=== PATIENT | female | born 1990 | race Caucasian/White ===

== ENCOUNTER 2022-06-30 05:41 | Inpatient (IN) ==
--- NOTE | 2022-06-26 15:55 | Anesthesiology Consultation ---
Date of Service June 26, 2022 Assessment & Plan (1) Encounter for pre-operative examination: Chart Review Chart Review: entry level staff accountant initiated -COVID screening: Per PAT nursing assessment on 06/26/22. No known COVID-19 p ositive contacts or current COVID-19 related symptoms. Travel screen negative. Patient is NOT vaccinated for Covid. At surgeon discretion if preop Covid testing being done. D&E 06/22/19= Done under GA with Grade 2 view with MAC #3.0. ETT #7.0. Atraumatic, all teeth ok. Hypopharynx History Surgery Operation Date: 06/30/22 07:30 Proposed Procedures p Primary Section - Gabriel Solano MD Height/Weight Height: 5 ft 2 in Weight: 133.356 kg Allergies Allergy/AdvReac Type Severity Reaction Status Date / Time No Known Allergies Allergy Verified 06/26/22 14:44 Medications Home Medications Medication Instructions Recorded Confirmed Last Taken vit no.95-ferrous 1 tab PO QAM 05/28/19 06/26/22 06/21/19 06:00 fumarate 28 mg-folic acid 800 mcg tablet () Past Medical History Medical History Allergic rhinitis Anxiety and depression Morbid obesity Seasonal allergies SOB (shortness of breath) on exertion "out of shape" Past Family History Family History Father Family history of diabetes mellitus Grandfather (Maternal) Family history of diabetes mellitus Past Surgical History Surgical History History of appendectomy History of tonsillectomy Hx of dilation and curettage Social History Smoking Status: Former smoker tobacco type: cigarettes Smoking cigarettes per day: CUTTING BACK 4-5 CIGS A DAY-X SEVERAL YRS Smoking End Date: quit > 1 yr ago Hx Alcohol Use: No Alcohol type: hard liquor alcohol intake frequency: holidays/special occasions only Hx Substance Use: No substance use type: does not use
[~2022-06-30 05:41] MED LIST: LACTATED RINGER'S 1,000 ML IV SCH
[2022-06-30] MEDS ORDERED: CITRIC ACID/SODIUM CITRATE 15 ML UDC PO SCH (06:00)
[2022-06-30 06:09] LABS: Hematocrit (blood only) 36.4 % (37.0-47.0); Hemoglobin 11.8 g/dl (12.0-16.0); Mean Corpuscular Hemoglobin 25.5 pg (25.0-34.0); Mean Corpuscular Hgb Conc 32.4 g/dL (32.0-36.0); Mean Corpuscular Volume 78.6 fL (80.0-100.0); Mean Platelet Volume 11.3 fL (9.4-12.4); Platelet Count 436 K/uL (130-400); RDW Coefficient of Variation 16.6 % (11.5-14.5); RDW Standard Deviation 46.1 fL (36.4-46.3); Red Blood Count 4.63 M/uL (4.20-5.40)
[2022-06-30 06:31] LABS: Basophils # (auto) 0.05 K/uL (0-0.2); Basophils % (auto) 0.4 %; Eosinophils # (auto) 0.14 K/uL (0-0.50); Eosinophils % (auto) 1.2 %; Immature Granulocytes # (auto) 0.05 K/uL (0.01-0.20); Immature Granulocytes % (auto) 0.4 %; Lymphocytes # (auto) 4.06 K/uL (1.2-3.4); Lymphocytes % (auto) 35.3 %; Monocytes # (auto) 0.69 K/uL (0.11-0.59); Neutrophils # (auto) 6.51 K/uL (1.40-6.50); Neutrophils % (auto) 56.7 %
[2022-06-30] MEDS ORDERED: MoRPHine SULFATE PF 1 MG/ML 10 ML AMP/VIAL ONE (07:28)
--- NOTE | 2022-06-30 07:39 | Anesthesiology Consultation ---
Date of Service June 30, 2022 Assessment & Plan Chart Review Chart Review: Acceptable Risk for Surgery Consults Requested none History Surgery Operation Date: 06/30/22 07:30 Proposed Procedures p Primary Section - Gabriel Solano MD Height/Weight Height: 5 ft 2 in Weight: 136.078 kg Allergies Allergy/AdvReac Type Severity Reaction Status Date / Time onion Allergy Hives Verified 06/30/22 06:31 Medications Home Medications Medication Instructions Recorded Confirmed Last Taken vit no.95-ferrous 1 tab PO QAM 05/28/19 06/26/22 06/21/19 06:00 fumarate 28 mg-folic acid 800 mcg tablet () NPO Date Last Intake of Fluids: 06/29/22 Time Last Intake of Fluids: 20:00 Date Last Intake of Solids: 06/29/22 Time Last Intake of Solids: 20:00 Past Medical History Medical History Allergic rhinitis Anxiety and depression Morbid obesity Seasonal allergies SOB (shortness of breath) on exertion "out of shape" Past Family History Family History Father Family history of diabetes mellitus Grandfather (Maternal) Family history of diabetes mellitus Past Surgical History Surgical History History of appendectomy History of tonsillectomy Hx of dilation and curettage Social History Smoking Status: Former smoker tobacco type: cigarettes Smoking cigarettes per day: CUTTING BACK 4-5 CIGS A DAY-X SEVERAL YRS Do You Dip or Chew Tobacco: No Smoking End Date: quit > 1 yr ago Hx Alcohol Use: No Alcohol type: hard liquor alcohol intake frequency: holidays/special occasions only Hx Substance Use: No substance use type: does not use Physical Exam Vital Signs Last Vital Signs Temp 36.7 C 06/30/22 07:05 Pulse 73 06/30/22 07:05 Resp 20 06/30/22 07:05 BP 133/71 06/30/22 07:05 Testing Laboratory Results 06/30/22 05:54 Blood Type A Positive 06/30/22 05:54 Antibody Screen NEGATIVE 06/30/22 05:54
[2022-06-30] MEDS ORDERED: ePHEDrine sulfate 50 MG/ML AMP IV PRN (07:40)
[2022-06-30] MEDS ORDERED: MoRPHine SULFATE PF 1 MG/ML 10 ML AMP/VIAL INT SPINAL ONE (07:40)
[2022-06-30] MEDS ORDERED: HYDROmorphone INJ 0.5 MG/0.5 ML SYR IV PRN (07:40)
[2022-06-30] MEDS ORDERED: NALOXONE HCL 1 MG in SODIUM CHLORIDE 0.9% 1000ML 1,000 ML IV PRN (07:40)
[2022-06-30] MEDS ORDERED: ONDANSETRON INJ 2 MG/ML 2 ML VIAL IV PRN (07:40)
[2022-06-30] MEDS ORDERED: MEPERIDINE HCL 25 MG/ML CARP/VIAL IV PRN (07:40)
[2022-06-30] MEDS ORDERED: diphenhydrAMINE 50 MG/ML VIAL IV PRN (07:40)
[2022-06-30] MEDS ORDERED: NALOXONE HCL 0.4 MG/1 ML VIAL/CARP IV PRN (07:40)
[2022-06-30] MEDS ORDERED: LACTATED RINGER'S 500 ML IV PRN (07:40)
[2022-06-30] MEDS ORDERED: NALOXONE HCL 0.08 MG in SYRINGE 1.8 ML IV PRN (07:40)
[2022-06-30] MEDS ORDERED: NALBUPHINE HCL INJ 10 MG/ML AMP IV PRN (07:40)
[2022-06-30] MEDS ORDERED: MoRPHine SULFATE 2 MG/ML CARP IV PRN (07:40)
[2022-06-30] MEDS ORDERED: NO NARCOTICS OR SEDATIVES SCH (07:45)
[2022-06-30] MEDS ORDERED: SODIUM CHLORIDE 0.9% 1000ML 1,000 ML IV SCH (07:45)
--- NOTE | 2022-06-30 07:46 | History & Physical Report ---
Date of Service June 30, 2022 Assessment & Plan (1) Breech presentation: Plan: section planned (2) Morbid obesity: Admission and Anticipated Discharge Date Admission Date: June 30, 2022 History of Present Illness Chief Complaint: breech presentation Primary Care Provider: Livier Dueñas MD 32 F [id number] at term presents for elective primary for breech. Ultrasound done this AM confirms breech. Allergies Allergy/AdvReac Type Severity Reaction Status Date / Time onion Allergy Hives Verified 06/30/22 06:31 Home Medications Medication Instructions Recorded Confirmed Type vit no.95-ferrous 1 tab PO QAM 05/28/19 06/26/22 History fumarate 28 mg-folic acid 800 mcg tablet () Patient History Medical History (Updated 06/30/22 @ 07:49 by Gabriel Solano MD) Allergic rhinitis Anxiety and depression Morbid obesity Seasonal allergies SOB (shortness of breath) on exertion "out of shape" Surgical History History of appendectomy History of tonsillectomy Hx of dilation and curettage Family History (Updated 06/30/22 @ 07:49 by Gabriel Solano MD) Father Family history of diabetes mellitus Grandfather (Maternal) Family history of diabetes mellitus Other Morbid obesity Social History Smoking Status: Former smoker Cigarettes Per Day: CUTTING BACK 4-5 CIGS A DAY-X SEVERAL YRS; Smoking End Date: quit > 1 yr ago; Second Hand Exposure: No; Do You Dip or Chew Tobacco: No; Tobacco Cessation Education Requested by Patient: No Hx Alcohol Use: No Hx Substance Use: No Preferred Language: Turkmen Communication Ability: Effective Slide Attendant Required: No Beliefs That Will Affect Care: None marital status: Single Current Living Situation: Family and Significant Other Current Living Situation Comment: FOB and son Other Information That Helps Us Care for You: No Feels Safe at Home: Yes Safety Concerns: Feels Safe At This Time Assistive Devices: Glasses 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 Physical Exam Constitutional: WD/WN, vitals as above Eyes: PERRL, conjunctivae normal, anicteric sclerae Respiratory: normal respiratory effort, lungs clear to auscultation Cardiovascular: Rate/Rhythm: regular rate and regular rhythm Musculoskeletal: Extremities: extremities normal to inspection Skin: no rashes, warm and dry Neurologic: patellar DTR's 2+ bilat, sensation intact Psychiatric: A+Ox3, euthymic affect Genitourinary: OB Exam Monitor Tracing: + external FHT monitor used, + external uterine monitor used, + category I and + normal FHT variability Results & Data ([facility]) Vital Signs (Past 12 Hours) Vital Signs Temp Pulse Resp BP 06/30/22 07:05 36.7 C 73 20 133/71 06/30/22 05:52 78 121/64 06/30/22 06:07 36.7 C 18 Code Status & VTE Plan VTE Prophylaxis Plan VTE Prophylaxis will be ordered: No Reason for no VTE drug order: Treatment not indicated Monitoring External Monitor Cat 1
[2022-06-30] MEDS ORDERED: PHENYLEPHRINE 100MCG/ML 5ML SYR ONE (09:14)
[2022-06-30] MEDS ORDERED: ePHEDrine sulfate 50 MG/ML AMP ONE (09:14)
[2022-06-30] MEDS ORDERED: ONDANSETRON INJ 2 MG/ML 2 ML VIAL ONE (09:14)
[2022-06-30] MEDS ORDERED: OXYTOCIN 10 UNITS/ML 10ML VIAL ONE (09:15)
--- NOTE | 2022-06-30 09:43 | Post Operative Brief Note ---
Immediate Post Op Note v1 Date of Surgery June 30, 2022 Pre & Post Diagnosis Operation Date: 06/30/22 07:30 <No data on this case meets the specified criteria> I identified the patient and participated in the time-out.: Yes Procedure Operation Date: 06/30/22 07:30 <No data on this case meets the specified criteria> Surgeon Gabriel Solano MD Rooming House Inspector Alysha Estimated Blood Loss 600 Findings Consistent with Post-Op Diagnosis live male breech Apgars 8/9 weight pending Fluids 2000 ml LR Specimens placenta Drains Norton Catheter (Norton cath placed after spinal; concentrated yellow urine noted upon insetion. ) Anesthesia Type Spinal Complications none Disposition Accompanied Patient To Recovery: Yes Overlapping Procedure I was present for: the critical portions of procedure. I was immediately available: during the entire case. Back up surgeon: was not required during procedure.
[2022-06-30] MEDS ORDERED: LACTATED RINGER'S 1,000 ML IV SCH (10:11)
[2022-06-30] MEDS ORDERED: DIPHTHERIA/TETANUS/PERTUSSIS 0.5mL SYR/VIAL (Age 7+yrs) IM ONE (10:11)
[2022-06-30] MEDS ORDERED: OXYTOCIN 20 UNITS in LACTATED RINGER'S 1,000 ML IV SCH (10:11)
[2022-06-30] MEDS ORDERED: BENZOCAINE 20% AER SPR 82.5 GM CAN EXT PRN (10:11)
[2022-06-30] MEDS ORDERED: MAGNESIUM HYDROXIDE SUSP 30 ML UDC PO PRN (10:11)
[2022-06-30] MEDS ORDERED: HYDROCORTISONE ACETATE 25 MG SUPP PR PRN (10:11)
[2022-06-30] MEDS ORDERED: SENNA 8.6 MG TAB PO PRN (10:11)
[2022-06-30] MEDS: SIMETHICONE 80 MG CHEW PO SCH ×3 (12:35→21:13)
[2022-06-30] MEDS: KETOROLAC 30 MG/ML VIAL IV PRN ×2 (12:35→19:58)
--- NOTE | 2022-06-30 12:38 | Anesthesiology Progress Note ---
Date of Service June 30, 2022 Anesthesia Post Procedure Vital Signs Vital Signs: Temp Pulse Resp BP Pulse Ox O2 Del Method 06/30/22 11:50 36.7 C 20 06/30/22 11:01 20 06/30/22 10:31 20 06/30/22 10:31 20 06/30/22 09:21 20 06/30/22 10:11 20 06/30/22 10:01 20 06/30/22 10:04 20 06/30/22 09:41 20 Room Air 06/30/22 09:31 36.5 C 20 06/30/22 09:31 36.5 C 20 Room Air 06/30/22 12:08 70 99 06/30/22 12:03 68 100 06/30/22 12:01 68 119/58 L 06/30/22 11:58 72 100 06/30/22 11:53 71 100 06/30/22 11:48 78 100 06/30/22 11:43 71 99 06/30/22 11:38 76 98 06/30/22 11:33 68 99 06/30/22 11:31 81 107/58 L 06/30/22 11:28 58 L 100 06/30/22 11:23 65 100 06/30/22 11:18 64 100 06/30/22 11:13 61 100 06/30/22 11:08 63 100 06/30/22 11:03 70 98 06/30/22 11:01 77 114/68 06/30/22 10:58 70 98 06/30/22 10:53 69 99 06/30/22 10:51 66 113/58 L 06/30/22 10:48 67 97 06/30/22 10:43 71 97 06/30/22 10:41 72 115/63 06/30/22 10:38 67 98 06/30/22 10:33 88 97 06/30/22 10:31 70 115/59 L 06/30/22 10:28 77 98 06/30/22 10:23 79 97 06/30/22 10:21 78 117/62 06/30/22 10:18 74 97 06/30/22 10:13 70 97 06/30/22 10:11 71 111/62 06/30/22 10:08 76 96 06/30/22 10:03 63 96 06/30/22 10:01 66 120/58 L 06/30/22 09:58 74 97 06/30/22 09:53 71 96 06/30/22 09:48 79 93 06/30/22 09:43 90 06/30/22 09:43 80 06/30/22 09:43 67 91 06/30/22 09:41 77 117/58 L 06/30/22 09:37 72 97 06/30/22 09:36 69 113/55 L 06/30/22 09:32 95 06/30/22 09:32 84 06/30/22 09:32 73 94/51 L 06/30/22 07:05 36.7 C 73 20 133/71 06/30/22 05:52 78 121/64 06/30/22 06:07 36.7 C 18 Transfer of Care Handoff Completed per policy Notes Mental Status: alert / awake / arousable and participated in evaluation Nausea / Vomiting: adequately controlled Pain: adequately controlled Airway Patency, RR, SpO2: stable & adequate BP & HR: stable & adequate Hydration State: stable & adequate Neuraxial Anesthesia: was administered and sensory block is resolving Anesthetic Complications: no major complications apparent and Pt Satisfied with anesthetic care
--- NOTE | 2022-06-30 17:22 | Operative Report (OR) ---
DATE OF SURGERY: 06/30/2022. PREOPERATIVE DIAGNOSIS: Primary section for breech presentation. POSTOPERATIVE DIAGNOSIS: Primary section for breech presentation. PROCEDURE: Primary section, low segment transverse. SURGEON: Gabriel Solano MD. PATIENT SUPPORT PARTNER: CLAIRE Encarnacion. ANESTHESIA: Spinal. COMPLICATIONS: None. ESTIMATED BLOOD LOSS: 600 mL FINDINGS: Live male, Apgars 8 and 9, weight 8 pounds, one-half ounce with a nuchal cord x3, fr ank breech. URINE OUTPUT: 100 mL CLINICAL HISTORY: The patient is a 32-year-old female, para 1-0-2-1, who presents at 39+ weeks for a primary section for breech presentation. The patient was scanned earlier this morning by Tala Maurice confirming breech presentation. She received 3 grams of Ancef preop and a timeout was rodriguez d prior to start of procedure. DESCRIPTION OF PROCEDURE: Under satisfactory spinal anesthesia, the patient was prepped and draped i n the usual sterile fashion. A low Pfannenstiel incision was made after the pannus was retracted wit h a pannus retractor. The incision was carried down through several layers of the abdominal cavity i n successive layers without difficulty upon entering into the abdominal cavity. The 's head wa s noted to be on the maternal right side. The was delivered from the breech presentation with out difficulty. After a low segment transverse incision was made, the incision was widened in the AP diameter. Clear fluid was noted. There was a nuchal cord x3 that was reduced at the time of deliver y and the baby was successfully handed off to vp integration present for the delivery with Apgars of 8 and 9 and weight was 8 pounds one-half ounce. Cord blood was obtained. Placenta was then deli elgin spontaneously and intact and submitted to pathology as a separate specimen and cord blood was o btained as well. The uterus was then exteriorized. Ring forceps were then placed on both margins in the inferior margin. Uterus was closed in a 3-layer closure with 0 Vicryl suture in a continuous in terlocking fashion followed by another imbricating layer and a third imbricating layer due to the fac t that the lower uterine segment was extremely thick. The initial sponge, needle, and instrument cou nts were found to be correct. The tubes, ovaries bilaterally on both sides were found to be correct. Contents of the pelvic abdominal cavity were then irrigated to clear. Uterus was then placed back into the normal anatomical position. The lower uterine segment was then examined and checked, no ble eding was noted. The fascia was then reapproximated from both ends using #1 Vicryl suture in a mirella nuous fashion. Subcuticular layer was then irrigated and closed with a 2-0 plain suture. Bleeders w ere cauterized and the skin was then reapproximated with 4-0 Monocryl suture. ÁLVARO dressing was then applied. Clear urine was noted from the Norton approximately 100 mL. The total EBL was 600 mL. The final sponge, needle and instrument count were found to be correct. The patient was then placed supi ne on a stretcher and taken to recovery room in stable condition. Job ID: [id number]
[2022-06-30] MEDS: DOCUSATE SODIUM 100 MG CAP PO SCH (21:14)
[2022-07-01] MEDS ORDERED: LACTATED RINGER'S 1,000 ML IV ONE (00:44)
[2022-07-01] MEDS ORDERED: diphenhydrAMINE Capsule 25 MG CAP PO PRN (01:40)
[2022-07-01] MEDS ORDERED: MEPERIDINE HCL 50 MG/ML CARP IV PRN (01:40)
[2022-07-01] MEDS ORDERED: diphenhydrAMINE 50 MG/ML VIAL IV PRN (01:40)
[2022-07-01] MEDS ORDERED: PROMETHAZINE HCL 25 MG in SODIUM CHLORIDE 0.9% 50 ML IV PRN (01:40)
[2022-07-01] MEDS ORDERED: DC INTRASPINAL MORPHINE SCH (01:40)
[2022-07-01] MEDS ORDERED: ONDANSETRON INJ 2 MG/ML 2 ML VIAL IV PRN (01:40)
[2022-07-01] MEDS ORDERED: KETOROLAC 30 MG/ML VIAL IV PRN (01:40)
[2022-07-01] MEDS: IBUPROFEN 600 MG TAB PO PRN ×5 (02:44→21:04)
[2022-07-01] MEDS: oxyCODONE/ACETAMINOPHEN 5mg/325mg TAB PO PRN ×4 (02:44→21:03)
[2022-07-01 06:21] LABS: Basophils # (auto) 0.05 K/uL (0-0.2); Basophils % (auto) 0.5 %; Eosinophils # (auto) 0.11 K/uL (0-0.50); Hematocrit (blood only) 30.1 % (37.0-47.0); Hemoglobin 9.6 g/dl (12.0-16.0); Immature Granulocytes # (auto) 0.06 K/uL (0.01-0.20); Immature Granulocytes % (auto) 0.5 %; Lymphocytes # (auto) 3.65 K/uL (1.2-3.4); Lymphocytes % (auto) 33.3 %; Mean Corpuscular Hemoglobin 25.5 pg (25.0-34.0); Mean Corpuscular Hgb Conc 31.9 g/dL (32.0-36.0); Mean Corpuscular Volume 79.8 fL (80.0-100.0); Mean Platelet Volume 11.1 fL (9.4-12.4); Monocytes # (auto) 0.73 K/uL (0.11-0.59); Monocytes % (auto) 6.7 %; Neutrophils # (auto) 6.35 K/uL (1.40-6.50); Platelet Count 368 K/uL (130-400); RDW Coefficient of Variation 16.4 % (11.5-14.5); RDW Standard Deviation 47.2 fL (36.4-46.3); Red Blood Count 3.77 M/uL (4.20-5.40); White Blood Count 10.95 K/ul (4.8-10.8)
--- NOTE | 2022-07-01 07:06 | Obstetrical Progress Note ---
Date of Service July 01, 2022 Assessment & Plan (1) Normal course: Continue routine care Anticipate discharge home on postop day 2 or day 3 (2) Morbid obesity: Subjective Ambulation: ambulating normally Voiding: no voiding problems Passing Gas:: Yes Diet Tolerance:: regular diet Lochia:: Moderate Feeding Type:: breast feeding Current Pain Level(1-10): 1 Patient was sleeping when I arrived, denies any complaints at this time Physical Exam Constitutional WD/WN, vitals as above Respiratory normal respiratory effort, lungs clear to auscultation Cardiovascular RRR, no murmur, no edema Gastrointestinal (Abdomen) normal bowel sounds, soft, nontender, no hepatosplenomegaly Marvin dressing in place, clean and dry Results & Data ([facility]) Vital Signs (Past 12 Hours) Vital Signs Temp Pulse Resp BP Pulse Ox O2 Del Method 07/01/22 03:30 36.7 C 69 18 127/80 97 Room Air 06/30/22 23:22 16 98 07/01/22 00:42 16 96 07/01/22 00:42 37.1 C 88 18 120/76 97 Room Air 07/01/22 01:25 18 97 06/30/22 22:35 16 98 06/30/22 21:49 16 95 06/30/22 20:00 18 94 06/30/22 20:00 37.0 C 72 18 110/73 94 Room Air Laboratory Results Laboratory Results WBC 10.95 K/ul (4.8-10.8) H 07/01/22 06:01 RBC 3.77 M/uL (4.20-5.40) L 07/01/22 06:01 Hgb 9.6 g/dl (12.0-16.0) L 07/01/22 06:01 Hct 30.1 % (37.0-47.0) L 07/01/22 06:01 MCV 79.8 fL (80.0-100.0) L 07/01/22 06:01 MCH 25.5 pg (25.0-34.0) 07/01/22 06:01 MCHC 31.9 g/dL (32.0-36.0) L 07/01/22 06:01 RDW Std Deviation 47.2 fL (36.4-46.3) H 07/01/22 06:01 RDW Coeff of [place] 16.4 % (11.5-14.5) H 07/01/22 06:01 Plt Count 368 K/uL (130-400) 07/01/22 06:01 MPV 11.1 fL (9.4-12.4) 07/01/22 06:01 Immature Gran % (Auto) 0.5 % 07/01/22 06:01 Neut % (Auto) 58.0 % 07/01/22 06:01 Lymph % (Auto) 33.3 % 07/01/22 06:01 [place] % (Auto) 6.7 % 07/01/22 06:01 Eos % (Auto) 1.0 % 07/01/22 06:01 Baso % (Auto) 0.5 % 07/01/22 06:01 Neut # (Auto) 6.35 K/uL (1.40-6.50) 07/01/22 06:01 Lymph # (Auto) 3.65 K/uL (1.2-3.4) H 07/01/22 06:01 [place] # (Auto) 0.73 K/uL (0.11-0.59) H 07/01/22 06:01 Eos # (Auto) 0.11 K/uL (0-0.50) 07/01/22 06:01 Baso # (Auto) 0.05 K/uL (0-0.2) 07/01/22 06:01 Immature Gran # (Auto) 0.06 K/uL (0.01-0.20) 07/01/22 06:01 SARS-CoV-2, RNA, NAAT NEGATIVE (NEGATIVE) 06/30/22 Unknown Blood Type A Positive 06/30/22 05:54 Antibody Screen NEGATIVE 06/30/22 05:54
[2022-07-01] MEDS: FERROUS SULFATE 325 MG TAB PO SCH (07:46)
[2022-07-01] MEDS: DOCUSATE SODIUM 100 MG CAP PO SCH ×2 (07:46→21:04)
[2022-07-01] MEDS: PRENATAL VITAMIN 1 TAB PO SCH (07:46)
[2022-07-01] MEDS: SIMETHICONE 80 MG CHEW PO SCH ×4 (07:47→21:03)
[2022-07-01] MEDS ORDERED: NON-FORMULARY MEDICATION (Pnv Cmb#95-Ferrous Fumarate-Fa [Prenatal] 28 mg iron- 800 mcg Ta PO SCH (09:00)
[2022-07-01] MEDS ORDERED: bisacodyL 5 MG TABEC PO SCH (20:00)
[2022-07-02] MEDS: IBUPROFEN 600 MG TAB PO PRN ×3 (01:13→10:39)
[2022-07-02] MEDS: oxyCODONE/ACETAMINOPHEN 5mg/325mg TAB PO PRN ×2 (01:13→06:05)
[2022-07-02 06:21] LABS: Hematocrit (blood only) 29.5 % (37.0-47.0); Hemoglobin 9.3 g/dl (12.0-16.0)
--- NOTE | 2022-07-02 08:57 | Obstetrical Progress Note ---
Date of Service July 02, 2022 Assessment & Plan Admission and Anticipated Discharge Date Admission Date: June 30, 2022 Subjective Patient is seen and examined. She feels well, no complaints. Pain is under control with oral meds. Ambulating without dizzinesss Voiding without difficulty Tolerating regular diet with out N&V Flatus + BM + Bleeding is minimal No fever/ chills/ CP/ SOB/ N&V/ Leg pain Breast feeding without problems Vital Signs Temp Pulse Resp BP Pulse Ox O2 Del Method 07/02/22 07:25 37.0 C 77 18 108/78 96 Room Air 07/01/22 23:25 36.7 C 72 18 99/69 L 95 Room Air Lab Results 06/30/22 06/30/22 06/30/22 Range/Units 05:54 05:54 Unknown WBC 11.50 H (4.8-10.8) K/ul RBC 4.63 (4.20-5.40) M/uL Hgb 11.8 L (12.0-16.0) g/dl Hct 36.4 L (37.0-47.0) % MCV 78.6 L (80.0-100.0) fL MCH 25.5 (25.0-34.0) pg MCHC 32.4 (32.0-36.0) g/dL RDW Std Deviation 46.1 (36.4-46.3) fL RDW Coeff of [place] 16.6 H (11.5-14.5) % Plt Count 436 H (130-400) K/uL MPV 11.3 (9.4-12.4) fL Immature Gran % (Auto) 0.4 % Neut % (Auto) 56.7 % Lymph % (Auto) 35.3 % [place] % (Auto) 6.0 % Eos % (Auto) 1.2 % Baso % (Auto) 0.4 % Neut # (Auto) 6.51 H (1.40-6.50) K/uL Lymph # (Auto) 4.06 H (1.2-3.4) K/uL [place] # (Auto) 0.69 H (0.11-0.59) K/uL Eos # (Auto) 0.14 (0-0.50) K/uL Baso # (Auto) 0.05 (0-0.2) K/uL Immature Gran # (Auto) 0.05 (0.01-0.20) K/uL SARS-CoV-2, RNA, NAAT NEGATIVE (NEGATIVE) Blood Type A Positive Antibody Screen NEGATIVE 07/01/22 07/02/22 Range/Units 06:01 06:01 WBC 10.95 H (4.8-10.8) K/ul RBC 3.77 L (4.20-5.40) M/uL Hgb 9.6 L 9.3 L (12.0-16.0) g/dl Hct 30.1 L 29.5 L (37.0-47.0) % MCV 79.8 L (80.0-100.0) fL MCH 25.5 (25.0-34.0) pg MCHC 31.9 L (32.0-36.0) g/dL RDW Std Deviation 47.2 H (36.4-46.3) fL RDW Coeff of [place] 16.4 H (11.5-14.5) % Plt Count 368 (130-400) K/uL MPV 11.1 (9.4-12.4) fL Immature Gran % (Auto) 0.5 % Neut % (Auto) 58.0 % Lymph % (Auto) 33.3 % [place] % (Auto) 6.7 % Eos % (Auto) 1.0 % Baso % (Auto) 0.5 % Neut # (Auto) 6.35 (1.40-6.50) K/uL Lymph # (Auto) 3.65 H (1.2-3.4) K/uL [place] # (Auto) 0.73 H (0.11-0.59) K/uL Eos # (Auto) 0.11 (0-0.50) K/uL Baso # (Auto) 0.05 (0-0.2) K/uL Immature Gran # (Auto) 0.06 (0.01-0.20) K/uL SARS-CoV-2, RNA, NAAT (NEGATIVE) Blood Type Antibody Screen PE: General: Alert, orientedx3, NAD CVS: S1S2 RRR Lungs; CTAB Abd: soft, NT, ND, BS+, fundus firm, below Umbilicus Incision/ ÁLVARO Dressing: Clean, dry, intact Perineum intact, Lochia rubra minimal Ext; NT, no edema, varicose veins+ AP: 32 yo s/p C Section, pod# 2 VSS Afebrile doing well Continue routine postop care Encourage ambulation, PO intake Desires d/c today Start anticoagulation prophylaxis today All questions were answered D/C home after teaching for Lovenox use Results & Data ([facility]) Vital Signs (Past 12 Hours) Vital Signs Temp Pulse Resp BP Pulse Ox O2 Del Method 07/02/22 07:25 37.0 C 77 18 108/78 96 Room Air 07/01/22 23:25 36.7 C 72 18 99/69 L 95 Room Air
[2022-07-02] MEDS ORDERED: ENOXAPARIN INJ 40 MG/0.4 ML SYR SQ SCH (09:00)
[2022-07-02] MEDS: DOCUSATE SODIUM 100 MG CAP PO SCH (09:08)
[2022-07-02] MEDS: FERROUS SULFATE 325 MG TAB PO SCH (09:08)
[2022-07-02] MEDS: SIMETHICONE 80 MG CHEW PO SCH (09:08)
[2022-07-02] MEDS: PRENATAL VITAMIN 1 TAB PO SCH (09:08)
[2022-07-02] MEDS ORDERED: bisacodyL 10 MG SUPP PR PRN (09:36)
== END 2022-07-02 11:20 | disposition home or self-care (01) | DRG 788 ==
LOC: 4S1 05:41 → EDSTATUS 07:30 → 4E2 12:18

== ENCOUNTER 2022-11-21 12:27 | Inpatient (IN) ==
[2022-11-21] MEDS ORDERED: SODIUM CHLORIDE 0.9% 1000ML 1,000 ML IV ONE (12:50)
[2022-11-21 13:03] LABS: Appearance Urine Cloudy (Clear); Blood Urine Negative (Negative); Color Urine Orange; Epithelial Cell Urine Auto >30 /lpf (0-5); Glucose Urine UA Negative (Negative); Ketones Urine Negative (Negative); Leukocyte Esterase Urine 1+ (Negative); Nitrite Urine Positive (Negative); Protein Urine 1+ (Negative); Urobilinogen Urine Negative (Negative); pH Urine 5.5 (4.5-7.5)
[2022-11-21 13:06] LABS: Basophils # (auto) 0.08 K/uL (0-0.2); Basophils % (auto) 0.7 %; Eosinophils % (auto) 3.5 %; Hematocrit (blood only) 36.9 % (37.0-47.0); Hemoglobin 11.5 g/dl (12.0-16.0); Immature Granulocytes # (auto) 0.12 K/uL (0.01-0.20); Lymphocytes # (auto) 3.19 K/uL (1.2-3.4); Lymphocytes % (auto) 27.6 %; Mean Corpuscular Hemoglobin 23.7 pg (25.0-34.0); Mean Corpuscular Hgb Conc 31.2 g/dL (32.0-36.0); Mean Corpuscular Volume 75.9 fL (80.0-100.0); Mean Platelet Volume 9.4 fL (9.4-12.4); Monocytes # (auto) 0.59 K/uL (0.11-0.59); Monocytes % (auto) 5.1 %; Neutrophils # (auto) 7.18 K/uL (1.40-6.50); Neutrophils % (auto) 62.1 %; Platelet Count 577 K/uL (130-400); RDW Coefficient of Variation 15.6 % (11.5-14.5); RDW Standard Deviation 41.7 fL (36.4-46.3); Red Blood Count 4.86 M/uL (4.20-5.40); White Blood Count 11.56 K/ul (4.8-10.8)
--- NOTE | 2022-11-21 13:12 | XRay Report ---
XR chest 1V portable HISTORY: 32 years-old Female sob, vomiting acute shortness of breath with nausea and vomiting COMPARISON: None TECHNIQUE: AP view of the chest FINDINGS: Cardiac silhouette is enlarged. Moderate hemidiaphragm elevation. Subsegmental right basilar atelecta sis. No pneumothorax, pleural effusion or overt pulmonary edema. Bones appear grossly intact. IMPRESSION: Mild right basilar atelectasis. ACT 112: Negative or not required by law. The above report was generated using voice recognition software. It may contain grammatical, syntax o r spelling errors. Electronically signed by: Lemuel Ortega M.D. 11/21/2022 1:10 PM
[2022-11-21 13:20] LABS: Albumin Globulin Ratio 1.2 (0.9-2); Bilirubin,Total 4.5 mg/dl (0.2-1.0); Calcium 8.6 mg/dl (8.6-10.3); Creatinine Clr Calc Pharmacy 204.9 ml/min; Est GFR (African American) 146.4 ml/min; Est GFR (Non-African American) 126.3 ml/min; Globulin 3.4 gm/dl (2.5-4.0); Potassium 3.5 mmol/L (3.5-5.1); Total Protein 7.4 gm/dl (6.0-8.3)
[2022-11-21 13:27] LABS: Bilirubin Urine 3+ (Negative)
[2022-11-21 13:32] LABS: Pregnancy Test, Urine Negative (Negative)
[2022-11-21 13:36] LABS: RBC Urine Automated 0-4 /hpf (0-4)
[2022-11-21 13:37] LABS: Bacteria Urine Automated 1+ (Negative); Cast Urine Automated 0 /lpf (0-5); Mucus Urine Present (None Prsent)
[2022-11-21] MEDS ORDERED: OPTIRAY 320 100ml IV ONE (13:41)
--- NOTE | 2022-11-21 14:07 | CT Scan Report ---
ABDOMEN AND PELVIS CT WITH IV CONTRAST CT DOSE: 1408.89 mGy.cm HISTORY: Acute nausea with vomiting and elevated LFTs vomiting, back pain, elevated lfts TECHNIQUE: Multiaxial CT images of the abdomen and pelvis were performed following the IV administrat ion of 95 cc of Optiray, A dose lowering technique was utilized adhering to the principles of ALARA. COMPARISON STUDY: None. FINDINGS: Clear lung bases. No pneumatosis or pneumoperitoneum. Unremarkable spleen, pancreas and adr enal glands. Distended gallbladder with layering gallstones in the gallbladder lumen and neck. Common bile duct dilation measures up to 1.2 cm. No definite choledocholithiasis identified. Moderate intra hepatic biliary ductal dilation. Liver is mildly enlarged. Patency of the portal vein. Unremarkable kidneys. There are no bladder wall thickening which is partially decompressed. IUD of th e mid uterus. 3.1 cm right ovarian cyst. Aorta and IVC are unremarkable. No lymphadenopathy. No bowel obstruction or bowel wall thickening. No CT evidence of acute appendicitis. Tiny fat filled umbilical hernia, diastases of 2 cm. No acute fracture. Transitional lumbosacral anatomy. IMPRESSION: 1. Distended gallbladder with cholelithiasis, intrahepatic and extrahepatic biliary duct dilation. No definite choledocholithiasis identified by CT. Correlation with serum bilirubin recommended. 2. No bowel obstruction or bowel wall thickening. ACT 112: Negative or not required by law. The above report was generated using voice recognition software. It may contain grammatical, syntax o r spelling errors. Electronically signed by: Lemuel Ortega M.D. 11/21/2022 2:04 PM
[2022-11-21] MEDS ORDERED: PIPERACILLIN/TAZOBACTAM 4.5 GM/120 ML BAG IV ONE (14:09)
[2022-11-21] MEDS ORDERED: KETOROLAC TROMETHAMINE 15 MG/ML VIAL IV STA (14:16)
--- NOTE | 2022-11-21 15:22 | History & Physical Report ---
Date of Service November 21, 2022 Assessment & Plan (1) Acute cholecystitis: (2) Choledocholithiasis: Plan: Patient is a 32-year-old female who presented to the ED with abdominal pain, nausea, vomiting. On presentation to the ED, vitals stable. Afebrile. Saturating well on room air Labs reviewed; leukocytosis and thrombocytosis present. AST/AL T/ALP elevated. Total bilirubin 4.5 Urinalysis suggestive of infection CT abdomen and pelvis reviewed; distended gallbladder with cholelithiasis, intrahepatic and extrahepatic biliary duct dilation. Started on IV Zosyn Pain control with Toradol, morphine IV fluids with LR at 100 cc/h GI consulted from ED; ERCP tentatively on Wednesday Clear liquid diet, n.p.o. on Wednesday midnight General surgery consulted for possible laparoscopic cholecystectomy (3) Anxiety and depression: Plan: Continue on venlafaxine (4) Morbid obesity: Plan DVT prophylaxis Lovenox Full code Time spent evaluating patient, direct bedside care, chart review, placing orders, interpretation of diagnostic studies, discussion with consultants, patient, and family members, as well as other required patient management activities is 88 minutes Please note the above document was generated using voice recognition software. It may contain grammatical, syntax or spelling errors. Any formal questions or concerns about the content, text or information contained within the body of this dictation should be directly addressed to the provider for clarification History of Present Illness Chief Complaint: N/V, L flank pain Primary Care Provider: Livier Dueñas MD This is a 32yo F with PMH of anxiety and depression who presented to Urgent Care from work earlier today due to worsening flank pain, nausea and vomiting over the past few days. Has had poor appetite, nausea, vomiting, flank pain that is worse with eating and movement. Associated symptoms include lightheadedness and chills. Having diarrhea every time she eats. No urinary symptoms. Denies any known fever, CP, SOB or constipation. Was seen at urgent care and then directed to ED for further evaluation. Denies any known history of gall stones. History of appendectomy in the past. Had an IUD inserted 1 month ago. Only other home medication is Venlafaxine. VSS, WBC 11.56, AST 127, ALT 287, alk phos 266, UA abnormal, CT abd/pelvis with distended gallbladder with cholelithiasis, intrahepatic and extrahepatic biliary duct dilation. No definite choledocholithiasis identified by CT. Correlation with serum bilirubin recommended. ED discussed with Dr. Rodriguez of GI service who is coordinating for ERCP on Wednesday with Dr. Magana. Continuing Zosyn, clear liquids. Allergies Allergy/AdvReac Type Severity Reaction Status Date / Time onion Allergy Hives Verified 06/30/22 06:31 Home Medications Medication Instructions Recorded Confirmed Type ibuprofen 600 mg tablet 600 mg PO Q6 PRN pain #40 tabs 07/02/22 11/21/22 Rx levonorgestrel 21 mcg/24 hours (8 21 mcg intrauterine DIRECTED 11/21/22 11/21/22 History yrs) 52 mg intrauterine device (Mirena) venlafaxine 150 mg 150 mg PO DAILY 11/21/22 11/21/22 History capsule,extended release 24 hr Past Med/Surg History Medical History Allergic rhinitis Anxiety and depression Breech presentation Morbid obesity Surgical History History of appendectomy History of tonsillectomy Hx of dilation and curettage Family History Father Family history of diabetes mellitus Grandfather (Maternal) Family history of diabetes mellitus Other Morbid obesity Social History Smoking Status: Never smoker Cigarettes Per Day: CUTTING BACK 4-5 CIGS A DAY-X SEVERAL YRS; Second Hand Exposure: No; Do You Dip or Chew Tobacco: No; Hx Alcohol Use: No Hx Substance Use: No Preferred Language: Colombian Communication Ability: Effective Data Report Analyst Required: No Beliefs That Will Affect Care: None marital status: Single Current Living Situation: Family and Significant Other Current Living Situation Comment: FOB and son Feels Safe at Home: Yes Assistive Devices: Glasses Review of Systems Review of Systems: All systems reviewed & are unremarkable except as noted in Subjective Physical Exam Physical Exam: Constitutional: Awake, alert oriented x3. Morbidly obese. Respiratory: normal respiratory effort, lungs clear to auscultation, no wheeze, rales, rhonchi. Normal insp/exp effort, no accessory muscle use Cardiovascular: RRR, no murmur, no edema Vessels: no JVD or carotid bruit Chest: normal inspection of chest Abdomen: Soft, nontender. Left costovertebral angle tender. Musculoskeletal: no cyanosis or clubbing, extremities motor strength 5/5 Skin: no rashes, warm and dry normal turgor Neurologic: PERRL, EOMI, accommodation nl, no face palsy, no dysarthria CN's II- XI intact bilaterally and moves all extremities Psychiatric: A+Ox3, euthymic affect Results & Data Results & Data Vital Signs (Past 12 Hours) Vital Signs Temp Pulse Pulse Resp BP BP Pulse Ox 11/21/22 14:28 65 16 127/80 97 11/21/22 13:13 70 11/21/22 12:31 36.5 C 74 19 156/104 H 98 O2 Del Method 11/21/22 14:28 Room Air 11/21/22 13:13 11/21/22 12:31 Room Air Laboratory Results Laboratory Results WBC 11.56 K/ul (4.8-10.8) H 11/21/22 12:50 RBC 4.86 M/uL (4.20-5.40) 11/21/22 12:50 Hgb 11.5 g/dl (12.0-16.0) L 11/21/22 12:50 Hct 36.9 % (37.0-47.0) L 11/21/22 12:50 MCV 75.9 fL (80.0-100.0) L 11/21/22 12:50 MCH 23.7 pg (25.0-34.0) L 11/21/22 12:50 MCHC 31.2 g/dL (32.0-36.0) L 11/21/22 12:50 RDW Std Deviation 41.7 fL (36.4-46.3) 11/21/22 12:50 RDW Coeff of [place] 15.6 % (11.5-14.5) H 11/21/22 12:50 Plt Count 577 K/uL (130-400) H 11/21/22 12:50 MPV 9.4 fL (9.4-12.4) 11/21/22 12:50 Immature Gran % (Auto) 1.0 % 11/21/22 12:50 Neut % (Auto) 62.1 % 11/21/22 12:50 Lymph % (Auto) 27.6 % 11/21/22 12:50 [place] % (Auto) 5.1 % 11/21/22 12:50 Eos % (Auto) 3.5 % 11/21/22 12:50 Baso % (Auto) 0.7 % 11/21/22 12:50 Neut # (Auto) 7.18 K/uL (1.40-6.50) H 11/21/22 12:50 Lymph # (Auto) 3.19 K/uL (1.2-3.4) 11/21/22 12:50 [place] # (Auto) 0.59 K/uL (0.11-0.59) 11/21/22 12:50 Eos # (Auto) 0.40 K/uL (0-0.50) 11/21/22 12:50 Baso # (Auto) 0.08 K/uL (0-0.2) 11/21/22 12:50 Immature Gran # (Auto) 0.12 K/uL (0.01-0.20) 11/21/22 12:50 Sodium 138 mmol/L (136-145) 11/21/22 12:50 Potassium 3.5 mmol/L (3.5-5.1) 11/21/22 12:50 Chloride 103 mmol/L (98-107) 11/21/22 12:50 Carbon Dioxide 26 mmol/L (21-32) 11/21/22 12:50 Anion Gap 9 (3-11) 11/21/22 12:50 BUN 5 mg/dl (6-23) L 11/21/22 12:50 Creatinine 0.50 mg/dl (0.6-1.2) L 11/21/22 12:50 Est Cr Clr Drug Dosing 204.9 ml/min 11/21/22 12:50 Est GFR ( Amer) 146.4 ml/min 11/21/22 12:50 Est GFR (Non-Af Amer) 126.3 ml/min 11/21/22 12:50 BUN/Creatinine Ratio 10.0 (10-20) 11/21/22 12:50 Glucose 106 mg/dl (70-99(Fasting)) H 11/21/22 12:50 Calcium 8.6 mg/dl (8.6-10.3) 11/21/22 12:50 Total Bilirubin 4.5 mg/dl (0.2-1.0) H 11/21/22 12:50 AST 127 U/L (13-39) H 11/21/22 12:50 ALT 287 U/L (7-52) H 11/21/22 12:50 Alkaline Phosphatase 266 U/L (34-104) H 11/21/22 12:50 Total Protein 7.4 gm/dl (6.0-8.3) 11/21/22 12:50 Albumin 4.0 gm/dl (3.4-5.0) 11/21/22 12:50 Globulin 3.4 gm/dl (2.5-4.0) 11/21/22 12:50 Albumin/Globulin Ratio 1.2 (0.9-2) 11/21/22 12:50 Lipase 4 U/L (11-82) L 11/21/22 12:50 Urine Color [place] 11/21/22 12:50 Urine Appearance Cloudy (Clear) A 11/21/22 12:50 Urine pH 5.5 (4.5-7.5) 11/21/22 12:50 Ur Specific [place] 1.030 (1.000-1.030) 11/21/22 12:50 Urine Protein 1+ (Negative) H 11/21/22 12:50 Urine Glucose (UA) Negative (Negative) 11/21/22 12:50 Urine Ketones Negative (Negative) 11/21/22 12:50 Urine Blood Negative (Negative) 11/21/22 12:50 Urine Nitrite Positive (Negative) A 11/21/22 12:50 Urine Bilirubin 3+ (Negative) H 11/21/22 12:50 Urine Urobilinogen Negative (Negative) 11/21/22 12:50 Ur Leukocyte Esterase 1+ (Negative) H 11/21/22 12:50 Urine WBC (Auto) 1-5 /hpf (0-5) 11/21/22 12:50 Urine RBC (Auto) 0-4 /hpf (0-4) 11/21/22 12:50 U Hyaline Cast (Auto) 0 /lpf (0-5) 11/21/22 12:50 U Epithel Cells (Auto) >30 /lpf (0-5) H 11/21/22 12:50 Urine Bacteria (Auto) 1+ (Negative) H 11/21/22 12:50 Urine Mucus Present (None Prsent) A 11/21/22 12:50 Urine Yeast Not Reportable 11/21/22 12:50 Urine Test Negative (Negative) 11/21/22 12:50 SARS-CoV-2, RNA, NAAT NEGATIVE (NEGATIVE) 11/21/22 14:25 Impressions Chest X-Ray 11/21/22 12:51 XR chest 1V portable HISTORY: 32 years-old Female sob, vomiting acute shortness of breath with nausea and vomiting COMPARISON: None TECHNIQUE: AP view of the chest FINDINGS: Cardiac silhouette is enlarged. Moderate hemidiaphragm elevation. Subsegmental right basilar atelectasis. No pneumothorax, pleural effusion or overt pulmonary edema. Bones appear grossly intact. IMPRESSION: Mild right basilar atelectasis. ACT 112: Negative or not required by law. The above report was generated using voice recognition software. It may contain grammatical, syntax or spelling errors. Electronically signed by: Lemuel Oretga M.D. 11/21/2022 1:10 PM Abdomen/Pelvis CT 11/21/22 13:[address] WITH IV CONTRAST CT DOSE: 1408.89 mGy.cm HISTORY: Acute nausea with vomiting and elevated LFTs vomiting, back pain, elevated lfts TECHNIQUE: Multiaxial CT images of the abdomen and pelvis were performed following the IV administration of 95 cc of Optiray, A dose lowering technique was utilized adhering to the principles of ALARA. COMPARISON STUDY: None. FINDINGS: Clear lung bases. No pneumatosis or pneumoperitoneum. Unremarkable spleen, pancreas and adrenal glands. Distended gallbladder with layering gallstones in the gallbladder lumen and neck. Common bile duct dilation measures up to 1.2 cm. No definite choledocholithiasis identified. Moderate intrahepatic biliary ductal dilation. Liver is mildly enlarged. Patency of the portal vein. Unremarkable kidneys. There are no bladder wall thickening which is partially decompressed. IUD of the mid uterus. 3.1 cm right ovarian cyst. Aorta and IVC are unremarkable. No lymphadenopathy. No bowel obstruction or bowel wall thickening. No CT evidence of acute appendicitis. Tiny fat filled umbilical hernia, diastases of 2 cm. No acute fracture. Transitional lumbosacral anatomy. IMPRESSION: 1. Distended gallbladder with cholelithiasis, intrahepatic and extrahepatic biliary duct dilation. No definite choledocholithiasis identified by CT. Correlation with serum bilirubin recommended. 2. No bowel obstruction or bowel wall thickening. ACT 112: Negative or not required by law. The above report was generated using voice recognition software. It may contain grammatical, syntax or spelling errors. Electronically signed by: Lemuel Ortega M.D. 11/21/2022 2:04 PM Code Status & VTE Plan VTE Prophylaxis Plan VTE Prophylaxis will be ordered: Yes
--- NOTE | 2022-11-21 15:59 | Emergency Department Note ---
ED Provider Note History of Present Illness Chief Complaint: Urinary Symptoms Stated Complaint: POSSIBLE KIDNEY INFECTION, REFERRED BY URGENT CARE Time Seen by Provider: 11/21/22 12:36 Source: patient Mode of arrival: ambulatory Limitations: no limitations This patient is a 32-year-old female who presents to the emergency department for evaluation of "a possible kidney infection." Patient states that she has had some nausea and vomiting for the past 2 to 3 days. She has had some pain in her mid back with radiation down her back on both sides. She denies any abdominal pain. She denies any fever/chills. She was seen at urgent care this morning and was referred here for a possible kidney infection, per patient. She does report some associated dizziness. She states that she has been urinating less frequently than normal and her urine has been darker in color. She does note some yellowish vaginal discharge. Home Medications Medication Instructions Recorded Confirmed Type ibuprofen 600 mg tablet 600 mg PO Q6 PRN pain #40 tabs 07/02/22 11/21/22 Rx levonorgestrel 21 mcg/24 hours (8 21 mcg intrauterine DIRECTED 11/21/22 11/21/22 History yrs) 52 mg intrauterine device (Mirena) venlafaxine 150 mg 150 mg PO DAILY 11/21/22 11/21/22 History capsule,extended release 24 hr Allergies Allergy/AdvReac Type Severity Reaction Status Date / Time onion Allergy Hives Verified 06/30/22 06:31 Past Med/Surg History Medical History Allergic rhinitis Anxiety and depression Breech presentation Morbid obesity Surgical History History of appendectomy History of tonsillectomy Hx of dilation and curettage Family History Father Family history of diabetes mellitus Grandfather (Maternal) Family history of diabetes mellitus Other Morbid obesity Social History Smoking Status: Former smoker Cigarettes Per Day: CUTTING BACK 4-5 CIGS A DAY-X SEVERAL YRS; Second Hand Exposure: No; Do You Dip or Chew Tobacco: No; Hx Alcohol Use: Yes Alcohol type: wine Hx Substance Use: No Preferred Language: Lithuanian Communication Ability: Effective Ply Bander Required: Yes Beliefs That Will Affect Care: None marital status: Single Current Living Situation: Spouse Current Living Situation Comment: FOB and son Feels Safe at Home: Yes Assistive Devices: Glasses Physical Exam Vital Signs Vital Signs - 24 hr 11/21/22 12:31 11/21/22 13:13 11/21/22 14:28 Temperature 36.5 C Temperature Source Temporal Artery Scan Pulse Rate 74 70 Pulse Rate [Apical] 65 Pulse Rhythm [Apical] Regular Respiratory Rate 19 16 Respiratory Effort / Characteristics Non-Labored Respiratory Depth Normal Normal Respiratory Pattern Regular Blood Pressure 156/104 H Blood Pressure [Right Arm] 127/80 Blood Pressure Mean 121 Blood Pressure Mean [Right Arm] 95 Pulse Oximetry 98 97 Oxygen Delivery Method Room Air Room Air Sepsis Recent Fever Within 48 Hours No Sepsis New/Unexplained Change in Mental Status No Sepsis Action Taken by Nursing No Action Required VITALS: Vitals are noted on the nurse's note and reviewed by myself. GENERAL: This is a 32-year-old female, in no acute distress, well-developed well-nourished. SKIN: The skin was without rashes. EYES: Pupils equal round and reactive to light and accommodation. Mild scleral icterus noted. MOUTH: Mucous membranes moist. NECK: Supple without nuchal rigidity. HEART: Regular rate and rhythm without murmurs gallops or rubs. LUNGS: Clear to auscultation bilaterally without wheezes, rales or rhonchi. ABDOMEN: Positive bowel sounds x 4. Soft, nontender to palpation. NEURO: Patient was alert and oriented to person place and time. Course Administered Medications Enoxaparin Sodium (Enoxaparin Inj 40 Mg/0.4 Ml Syr) 40 mg SQ Q24H [facility] Stop: 12/21/22 16:54 Last Admin: 11/21/22 18:08 Dose: 40 mg Documented By: EDIS Piperacillin Sod/Tazobactam (Sod 4.5 gm/ Dextrose) 120 mls @ 30 mls/hr IV Q8H [facility]; Protocol Stop: 12/01/22 19:59 Last Admin: 11/21/22 18:14 Dose: 30 mls/hr Documented By: EDIS Lactated Ringer's (Lr) 1,000 mls @ 100 mls/hr IV .Q10H [facility] Stop: 11/21/22 22:00 Last Admin: 11/21/22 17:25 Dose: 100 mls/hr Documented By: EDIS Morphine Sulfate (Morphine Sulfate 2 Mg/Ml Carp) 1 mg IV Q4H PRN PRN Reason: severe pain Stop: 12/05/22 16:54 Last Admin: 11/21/22 17:21 Dose: 1 mg Documented By: EDIS Venlafaxine HCl (Venlafaxine Hcl Xr 150 Mg Capxr) 150 mg PO DAILY@1600 [place] Stop: 12/21/22 17:29 Last Admin: 11/21/22 18:08 Dose: 150 mg Documented By: EDIS Discontinued Medications Sodium Chloride (Nss 1000ml) 1,000 mls @ 999 mls/hr IV .Q1H1M ONE Stop: 11/21/22 13:50 Last Infusion: 11/21/22 14:41 Dose: 0 mls/hr Documented By: Admin: 11/21/22 12:56 Dose: 999 mls/hr Documented By: GISSELLE Piperacillin Sod/Tazobactam Sod (Zosyn) 4.5 gm in 120 mls @ 240 mls/hr IV NOW ONE Stop: 11/21/22 14:38 Last Infusion: 11/21/22 15:09 Dose: 0 mls/hr Documented By: Admin: 11/21/22 14:36 Dose: 240 mls/hr Documented By: GISSELLE Ioversol (Optiray 320 100ml) 95 ml IV ONCE ONE Stop: 11/21/22 13:42 Last Admin: 11/21/22 13:41 Dose: 95 ml Documented By: BIRGIT Ketorolac Tromethamine (Ketorolac Tromethamine 15 Mg/Ml Vial) 15 mg IV NOW STA Stop: 11/21/22 14:17 Last Admin: 11/21/22 14:36 Dose: 15 mg Documented By: GISSELLE Medical Decision Making Differential Diagnosis Appendicitis, ovarian cyst, ovarian torsion, ectopic , TOA, PID, infections, diverticulitis, UTI, obstruction, mesenteric ischemia, aortic pathology, inflammatory bowel disease, renal colic, PUD, pancreatitis, biliary pathology, hernia, volvulus, constipation, as well as other pathologies. Home Medications was personally reviewed by me Laboratory Data Attestation: I reviewed the patient's lab results. 11/21/22 12:50 11/21/22 12:50 Lab Results 11/21/22 11/21/22 11/21/22 Range/Units 12:50 12:50 12:50 WBC 11.56 H (4.8-10.8) K/ul RBC 4.86 (4.20-5.40) M/uL Hgb 11.5 L (12.0-16.0) g/dl Hct 36.9 L (37.0-47.0) % MCV 75.9 L (80.0-100.0) fL MCH 23.7 L (25.0-34.0) pg MCHC 31.2 L (32.0-36.0) g/dL RDW Std Deviation 41.7 (36.4-46.3) fL RDW Coeff of [place] 15.6 H (11.5-14.5) % Plt Count 577 H (130-400) K/uL MPV 9.4 (9.4-12.4) fL Immature Gran % (Auto) 1.0 % Neut % (Auto) 62.1 % Lymph % (Auto) 27.6 % [place] % (Auto) 5.1 % Eos % (Auto) 3.5 % Baso % (Auto) 0.7 % Neut # (Auto) 7.18 H (1.40-6.50) K/uL Lymph # (Auto) 3.19 (1.2-3.4) K/uL Weak[place] # (Auto) 0.59 (0.11-0.59) K/uL Eos # (Auto) 0.40 (0-0.50) K/uL Baso # (Auto) 0.08 (0-0.2) K/uL Immature Gran # (Auto) 0.12 (0.01-0.20) K/uL Sodium 138 (136-145) mmol/L Potassium 3.5 (3.5-5.1) mmol/L Chloride 103 (98-107) mmol/L Carbon Dioxide 26 (21-32) mmol/L Anion Gap 9 (3-11) BUN 5 L (6-23) mg/dl Creatinine 0.50 L (0.6-1.2) mg/dl Est Cr Clr Drug Dosing 204.9 ml/min Est GFR ( Amer) 146.4 ml/min Est GFR (Non-Af Amer) 126.3 ml/min BUN/Creatinine Ratio 10.0 (10-20) Glucose 106 H (70-99(Fasting)) mg/dl Calcium 8.6 (8.6-10.3) mg/dl Total Bilirubin 4.5 H (0.2-1.0) mg/dl AST 127 H (13-39) U/L ALT 287 H (7-52) U/L Alkaline Phosphatase 266 H (34-104) U/L Total Protein 7.4 (6.0-8.3) gm/dl Albumin 4.0 (3.4-5.0) gm/dl Globulin 3.4 (2.5-4.0) gm/dl Albumin/Globulin Ratio 1.2 (0.9-2) Lipase 4 L (11-82) U/L Urine Color Garvin Urine Appearance Cloudy A (Clear) Urine pH 5.5 (4.5-7.5) Ur Specific Sophia 1.030 (1.000-1.030) Urine Protein 1+ H (Negative) Urine Glucose (UA) Negative (Negative) Urine Ketones Negative (Negative) Urine Blood Negative (Negative) Urine Nitrite Positive A (Negative) Urine Bilirubin 3+ H (Negative) Urine Urobilinogen Negative (Negative) Ur Leukocyte Esterase 1+ H (Negative) Urine WBC (Auto) 1-5 (0-5) /hpf Urine RBC (Auto) 0-4 (0-4) /hpf U Hyaline Cast (Auto) 0 (0-5) /lpf U Epithel Cells (Auto) >30 H (0-5) /lpf Urine Bacteria (Auto) 1+ H (Negative) Urine Mucus Present A (None Prsent) Urine Yeast Not Reportable Urine Test (Negative) SARS-CoV-2, RNA, NAAT (NEGATIVE) 11/21/22 11/21/22 Range/Units 12:50 14:25 WBC (4.8-10.8) K/ul RBC (4.20-5.40) M/uL Hgb (12.0-16.0) g/dl Hct (37.0-47.0) % MCV (80.0-100.0) fL MCH (25.0-34.0) pg MCHC (32.0-36.0) g/dL RDW Std Deviation (36.4-46.3) fL RDW Coeff of [place] (11.5-14.5) % Plt Count (130-400) K/uL MPV (9.4-12.4) fL Immature Gran % (Auto) % Neut % (Auto) % Lymph % (Auto) % Weak[place] % (Auto) % Eos % (Auto) % Baso % (Auto) % Neut # (Auto) (1.40-6.50) K/uL Lymph # (Auto) (1.2-3.4) K/uL [place] # (Auto) (0.11-0.59) K/uL Eos # (Auto) (0-0.50) K/uL Baso # (Auto) (0-0.2) K/uL Immature Gran # (Auto) (0.01-0.20) K/uL Sodium (136-145) mmol/L Potassium (3.5-5.1) mmol/L Chloride (98-107) mmol/L Carbon Dioxide (21-32) mmol/L Anion Gap (3-11) BUN (6-23) mg/dl Creatinine (0.6-1.2) mg/dl Est Cr Clr Drug Dosing ml/min Est GFR ( Amer) ml/min Est GFR (Non-Af Amer) ml/min BUN/Creatinine Ratio (10-20) Glucose (70-99(Fasting)) mg/dl Calcium (8.6-10.3) mg/dl Total Bilirubin (0.2-1.0) mg/dl AST (13-39) U/L ALT (7-52) U/L Alkaline Phosphatase (34-104) U/L Total Protein (6.0-8.3) gm/dl Albumin (3.4-5.0) gm/dl Globulin (2.5-4.0) gm/dl Albumin/Globulin Ratio (0.9-2) Lipase (11-82) U/L Urine Color Urine Appearance (Clear) Urine pH (4.5-7.5) Ur Specific Sophia (1.000-1.030) Urine Protein (Negative) Urine Glucose (UA) (Negative) Urine Ketones (Negative) Urine Blood (Negative) Urine Nitrite (Negative) Urine Bilirubin (Negative) Urine Urobilinogen (Negative) Ur Leukocyte Esterase (Negative) Urine WBC (Auto) (0-5) /hpf Urine RBC (Auto) (0-4) /hpf U Hyaline Cast (Auto) (0-5) /lpf U Epithel Cells (Auto) (0-5) /lpf Urine Bacteria (Auto) (Negative) Urine Mucus (None Prsent) Urine Yeast Urine Test Negative (Negative) SARS-CoV-2, RNA, NAAT NEGATIVE (NEGATIVE) Imaging Data Attestation: I personally reviewed and interpreted this imaging study as follow s: Radiologist's Impression: Chest X-Ray 11/21/22 12:51 XR chest 1V portable HISTORY: 32 years-old Female sob, vomiting acute shortness of breath with nausea and vomiting COMPARISON: None TECHNIQUE: AP view of the chest FINDINGS: Cardiac silhouette is enlarged. Moderate hemidiaphragm elevation. Subsegmental right basilar atelectasis. No pneumothorax, pleural effusion or overt pulmonary edema. Bones appear grossly intact. IMPRESSION: Mild right basilar atelectasis. ACT 112: Negative or not required by law. The above report was generated using voice recognition software. It may contain grammatical, syntax or spelling errors. Electronically signed by: Lemuel Ortega M.D. 11/21/2022 1:10 PM Abdomen/Pelvis CT 11/21/22 13:[address] WITH IV CONTRAST CT DOSE: 1408.89 mGy.cm HISTORY: Acute nausea with vomiting and elevated LFTs vomiting, back pain, elevated lfts TECHNIQUE: Multiaxial CT images of the abdomen and pelvis were performed following the IV administration of 95 cc of Optiray, A dose lowering technique was utilized adhering to the principles of ALARA. COMPARISON STUDY: None. FINDINGS: Clear lung bases. No pneumatosis or pneumoperitoneum. Unremarkable spleen, pancreas and adrenal glands. Distended gallbladder with layering gallstones in the gallbladder lumen and neck. Common bile duct dilation measures up to 1.2 cm. No definite choledocholithiasis identified. Moderate intrahepatic biliary ductal dilation. Liver is mildly enlarged. Patency of the portal vein. Unremarkable kidneys. There are no bladder wall thickening which is partially decompressed. IUD of the mid uterus. 3.1 cm right ovarian cyst. Aorta and IVC are unremarkable. No lymphadenopathy. No bowel obstruction or bowel wall thickening. No CT evidence of acute appendicitis. Tiny fat filled umbilical hernia, diastases of 2 cm. No acute fracture. Transitional lumbosacral anatomy. IMPRESSION: 1. Distended gallbladder with cholelithiasis, intrahepatic and extrahepatic biliary duct dilation. No definite choledocholithiasis identified by CT. Correlation with serum bilirubin recommended. 2. No bowel obstruction or bowel wall thickening. ACT 112: Negative or not required by law. The above report was generated using voice recognition software. It may contain grammatical, syntax or spelling errors. Electronically signed by: Lemuel Ortega M.D. 11/21/2022 2:04 PM MDM Narrative Continuous cardiac rehabilitation program director: Order was placed for continuous cardiac rehabilitation program director. Patient was placed on the cardiac rehabilitation program director. Patient was noted to be in normal sinus rhythm at an initial rate of 70 bpm. The patient is a 32-year-old female who presents today complaining of back pain and vomiting. Labs revealed an elevated bilirubin of 4.5 as well as a transaminitis. Patient has a leukocytosis of 11.56. CT of the abdomen/pelvis was performed and shows gallbladder distention with cholelithiasis as well as intrahepatic and extrahepatic biliary duct dilatation. Correlated with her LFTs, this does suggest a choledocholithiasis. Patient was treated with Zosyn. I spoke with the on-call vascular physician, Dr. Rodriguez, who recommends admitting the patient to medicine and she can have an ERCP done on Wednesday by his colleague. Case was then discussed with the [facility] Hospitalist service, who agreed to evaluate the patient for further care. Impression Choledocholithiasis, Jaundice Discharge Plan Visit Data Chief Complaint: Urinary Symptoms Stated Complaint: POSSIBLE KIDNEY INFECTION, REFERRED BY URGENT CARE ED Provider: Vitaly Nair ED Midlevel Provider: Sonia Salazar Discharge Problem: Choledocholithiasis, Jaundice Patient Disposition: Admitted As Inpatient Discharge Instructions Interventions: ED Discharge Assessment Last Done: 11/21/22 16:26
--- NOTE | 2022-11-21 16:31 | Gastrointestinal Consultation ---
Date of Consultation November 21, 2022 Assessment & Plan (1) Choledocholithiasis: (2) Cholelithiasis: (3) Nausea and vomiting: Plan nausea and vomiting and back pain likely due to choledocholithiasis, tbili 4.5 high probability for CBD stone based on ASGE criteria; CBD is 1.2 cm on imaging. not febrile at this time. recs: clear liquid diet today and tomorrow, NPO post midnight wednesday night EUS/ERCP thursday 11/[address] Cox if becomes febrile/worsening leukocytosis then would start antibiotics as well supportive care, IVF Thank you for allowing me to participate in the care of this patient History of Present Illness History of Present Illness 32 yo female with hx obesity, anxiety here with nausea/vomiting last few days as well as back pains. She notes chills as well. She recently had a baby in june 2022, no hx gallstones but uncle had gallbladder/pancreatic cancer. CT A/P showing CBD 1.2 cm and tbili is 4.5, no definite choledocholithiasis seen on imaging but there is cholelithiasis. labs reviewed. VSS Allergies Allergy/AdvReac Type Severity Reaction Status Date / Time onion Allergy Hives Verified 06/30/22 06:31 Home Medications Medication Instructions Recorded Confirmed Type ibuprofen 600 mg tablet 600 mg PO Q6 PRN pain #40 tabs 07/02/22 11/21/22 Rx levonorgestrel 21 mcg/24 hours (8 21 mcg intrauterine DIRECTED 11/21/22 11/21/22 History yrs) 52 mg intrauterine device (Mirena) venlafaxine 150 mg 150 mg PO DAILY 11/21/22 11/21/22 History capsule,extended release 24 hr Patient History Medical History Allergic rhinitis Anxiety and depression Breech presentation Morbid obesity Surgical History History of appendectomy History of tonsillectomy Hx of dilation and curettage Family History Father Family history of diabetes mellitus Grandfather (Maternal) Family history of diabetes mellitus Other Morbid obesity Social History Smoking Status: Never smoker Cigarettes Per Day: CUTTING BACK 4-5 CIGS A DAY-X SEVERAL YRS; Second Hand Exposure: No; Do You Dip or Chew Tobacco: No; Hx Alcohol Use: No Hx Substance Use: No Preferred Language: Bahamian Communication Ability: Effective Grade School Teacher Required: No Beliefs That Will Affect Care: None marital status: Single Current Living Situation: Family and Significant Other Current Living Situation Comment: FOB and son Feels Safe at Home: Yes Assistive Devices: Glasses Review of Systems Constitutional: no fever, no chills and no weight loss Eyes: as per Subjective / HPI Ear, Nose, Mouth, Throat: as per Subjective / HPI Respiratory: no dyspnea and no dyspnea on exertion Cardiovascular: no chest pain and no palpitations Gastrointestinal: as per Subjective / HPI Musculoskeletal: no joint pain and no swelling Integumentary: no rash and no lesions Neurologic: no numbness and no paresthesia Psychiatric: no depression and no anxiety Endocrine: no fatigue Hematologic / Lymphatic: no easy bleeding and no easy bruising Physical Exam Constitutional: WD/WN, vitals as above Eyes: EOM intact bilaterally Neck: normal visual inspection Respiratory: normal respiratory effort, lungs clear to auscultation Cardiovascular: RRR, no murmur, no edema Gastrointestinal (Abdomen): Inspection/Auscultation: abdomen normal to inspection; abdomen not distended Percussion/Palpation: abdomen soft; abdomen nontender and no hepatosplenomegaly Musculoskeletal: Extremities: no cyanosis Gait: normal gait Skin: no rashes, warm and dry Neurologic: moves all extremities Psychiatric: A+Ox3, euthymic affect Results & Data Vital Signs (Past 12 Hours) Vital Signs Temp Pulse Pulse Resp BP BP Pulse Ox 11/21/22 14:28 65 16 127/80 97 11/21/22 13:13 70 11/21/22 12:31 36.5 C 74 19 156/104 H 98 O2 Del Method 11/21/22 14:28 Room Air 11/21/22 13:13 11/21/22 12:31 Room Air PG Care Time/CCT Total # of Minutes Spent Total Time Spent with Patient: Total time spent is greater than 50% in coordination of care (as documented) at patient's floor/unit and/or counseling patient: Coding Level of Care Code 03521 IN/OBS CONSULT LVL 4,60M Diagnoses Choledocholithiasis K80.50 Cholelithiasis K80.20 Nausea and vomiting R11.2
[2022-11-21] MEDS ORDERED: LACTATED RINGER'S 1,000 ML IV SCH (16:55)
[2022-11-21] MEDS ORDERED: KETOROLAC TROMETHAMINE 15 MG/ML VIAL IV PRN (16:55)
[2022-11-21] MEDS ORDERED: MoRPHine SULFATE 2 MG/ML CARP IV PRN (16:55)
[2022-11-21] MEDS ORDERED: ACETAMINOPHEN 325 MG TAB PO PRN (16:55)
[2022-11-21] MEDS ORDERED: Nursing to Pharmacy Communication SCH (17:15)
[2022-11-21] MEDS: ENOXAPARIN INJ 40 MG/0.4 ML SYR SQ SCH (18:08)
[2022-11-21] MEDS: VENLAFAXINE HCL XR 150 MG CAPXR PO SCH (18:08)
[2022-11-21] MEDS: PIPERACILLIN/TAZOBACTAM 4.5 GM in DEXTROSE 5% 100 ML IV SCH (18:14)
--- NOTE | 2022-11-21 19:04 | Surgery Consultation ---
Date of Consultation November 21, 2022 Assessment & Plan (1) Cholelithiasis: (2) Choledocholithiasis: The patient has been admitted on the hospitalist service. Recommend proceeding as follows: Provide analgesics Provide antiemetics Continue IV fluid for hydration The patient is currently on clear liquid diet which should continue The patient is receiving antibiotics in form of Zosyn. This will cover potential cholecystitis as well as urinary tract infection as she is noted to have an abnormal urinalysis. Appropriate blood and urine cultures have been sent and antibiotics to be tailored based on these results Follow serial labs Patient has been seen by gastroenterology and they feel the patient has a high likelihood of choledocholithiasis and therefore an ERCP is planned for 11/23/2022. Patient would likely benefit from cholecystectomy as well but timing this will have to be coordinated with the timing of her ERCP. Additional recommendations to be forthcoming based on her clinical course as unfolds as well as findings at time of ERCP and timing of any planned surgery Lovenox is in place for DVT prevention Supervising Physician Co-Signing Physician Notes Dr Thornton- agree with above plan. case reviewed- pt with TB 4.5. Will eventually require Lap bhumi but current problem is likely choledocholithiasis- GI evaluation indicates ERCP Wednesday - if required sooner , will need transfer. IV atbx. History of Present Illness Reason for Consultation: Cholelithiasis Attending Physician: Jason Velazquez MD History of Present Illness This is a 32-year-old female who presented to the emergency department secondary to nausea and vomiting that began approximately 3 to 4 days ago. Patient notes that her symptomatology was unrelated to meals. The pain did radiate to her back somewhat. She did report palliative factors with medicines that were administered since admission to the hospital but denies any other provocative factors. The patient denies any postprandial pain in the weeks to months preceding her hospitalization. She has had prior abdominal surgeries as she has had a and an appendectomy. With her current presentation she has not had any fevers, shakes, or chills. She notes that the nausea and vomiting and p ain became much worse than what they had been over the past several days so she presented to the hospital. Since arrival to the hospital the patient has had labs and imaging which I independent reviewed. A chest x-ray showed some right basilar atelectasis but no pneumothorax or pleural effusion. A CT scan of the abdomen pelvis was performed that showed no pneumatosis or pneumoperitoneum. The patient was noted to have a distended gallbladder with cholelithiasis. There is intra and extrahepatic biliary ductal dilatation. Labs include a CBC her white blood cell count was elevated 11.5. Hemoglobin and hematocrit were 11.5 and 36.9. Platelet count was 577,000. Chemistry profile showed sodium and potassium are both normal. BUN and creatinine were both not elevated at 5 and 0.5 respecti vely. The patient had elevated LFTs with a total bilirubin of 4.5. Her AST and ALT were 127 and 287 respectively. Alkaline phosphatase was elevated at 266. Her lipase was nonelevated. Urinalysis was positive for nitrites and had 1+ leukocyte Estrace. There were only 1-5 white blood cells per high-power field. There was no yeast. There was 1+ bacteria on this study. A COVID test was negative. At the time of my interview the patient was resting comfortably in bed and she was in no distress. Allergies Allergy/AdvReac Type Severity Reaction Status Date / Time onion Allergy Hives Verified 06/30/22 06:31 Home Medications Medication Instructions Recorded Confirmed Type ibuprofen 600 mg tablet 600 mg PO Q6 PRN pain #40 tabs 07/02/22 11/21/22 Rx levonorgestrel 21 mcg/24 hours (8 21 mcg intrauterine DIRECTED 11/21/22 11/21/22 History yrs) 52 mg intrauterine device (Mirena) venlafaxine 150 mg 150 mg PO DAILY 11/21/22 11/21/22 History capsule,extended release 24 hr Patient History Medical History Allergic rhinitis Anxiety and depression Breech presentation Morbid obesity Surgical History History of appendectomy History of tonsillectomy Hx of dilation and curettage Family History Father Family history of diabetes mellitus Grandfather (Maternal) Family history of diabetes mellitus Other Morbid obesity Social History Smoking Status: Former smoker Cigarettes Per Day: CUTTING BACK 4-5 CIGS A DAY-X SEVERAL YRS; Second Hand Exposure: No; Do You Dip or Chew Tobacco: No; Hx Alcohol Use: Yes Alcohol type: wine Hx Substance Use: No Preferred Language: Uzbek Communication Ability: Effective Tv Technician Required: Yes Beliefs That Will Affect Care: None marital status: Single Current Living Situation: Spouse Current Living Situation Comment: FOB and son Feels Safe at Home: Yes Assistive Devices: Glasses Review of Systems Constitutional: no fever and no chills Eyes: + corrective lenses Ear, Nose, Mouth, Throat: no ear pain Respiratory: no cough and no dyspnea Cardiovascular: no chest pain Gastrointestinal: as per Subjective / HPI Genitourinary: no dysuria Musculoskeletal: + back pain (Radiating from abdomen) Integumentary: no rash Neurologic: no localized weakness Physical Exam Constitutional: WD/WN, vitals as above Eyes: + anicteric sclerae ENMT: Ears: no hearing impairment and no external ear abnormality Mouth: no oropharynx abnormality Neck: trachea midline Respiratory: Breath sounds are slightly decreased at the bases but there are no rales, rhonchi, or wheezing. She is not using accessory muscles to aid in respiration Cardiovascular: Rate/Rhythm: regular rhythm Gastrointestinal (Abdomen): Abdomen is soft, nonrigid, nondistended,. Bowel sounds are present. Patient did have tenderness to palpation to the right of the umbilicus and also in the right upper quadrant. There is no rebound tenderness or guarding. Musculoskeletal: No calf tenderness Skin: no rashes Neurologic: moves all extremities Psychiatric: A+Ox3, euthymic affect Results & Data Vital Signs (Past 12 Hours) Vital Signs Temp Pulse Pulse Pulse Resp BP BP 11/21/22 17:00 36.5 C 73 20 125/83 11/21/22 16:56 36.9 C 79 17 115/81 11/21/22 16:26 87 18 127/80 11/21/22 14:28 65 16 127/80 11/21/22 13:13 70 11/21/22 12:31 36.5 C 74 19 156/104 H Pulse Ox O2 Del Method 11/21/22 17:00 97 Room Air 11/21/22 16:56 95 Room Air 11/21/22 16:26 100 Room Air 11/21/22 14:28 97 Room Air 11/21/22 13:13 11/21/22 12:31 98 Room Air PG Care Time/CCT Total # of Minutes Spent Total Time Spent with Patient: Total time spent is greater than 50% in coordination of care (as documented) at patient's floor/unit and/or counseling patient: Coding Level of Care Code 63715 IN/OBS CONSULT LVL 5,80M Diagnoses Cholelithiasis K80.20 Choledocholithiasis K80.50
[2022-11-21] MEDS: ONDANSETRON INJ 2 MG/ML 2 ML VIAL IV PRN (21:24)
[2022-11-22] MEDS: PIPERACILLIN/TAZOBACTAM 4.5 GM in DEXTROSE 5% 100 ML IV SCH ×3 (03:54→19:50)
--- NOTE | 2022-11-22 05:43 | Surgery Progress Note ---
Date of Service November 22, 2022 Assessment & Plan (1) Cholelithiasis: (2) Choledocholithiasis: Plan: The patient has been admitted on the hospitalist service. Continue care as follows: Continue analgesics Continue antiemetics Continue IV fluid for hydration Continue clear liquid diet Continue antibiotics in form of Zosyn. This will cover potential cholecystitis as well as urinary tract infection as she is noted to have an abnormal urinalysis. Appropriate blood and urine cultures have been sent and antibiotics to be tailored based on these results Check a.m. labs when available GI input notedpatient is tentatively scheduled for ERCP on 11/23/2022. Timing of cholecystectomy will be dependent on timing of ERCP as well as findings during this procedure Lovenox is in place for DVT prevention Admission and Anticipated Discharge Date Admission Date: November 21, 2022 Supervising Physician Co-Signing Physician Notes Dr. Thorntonpatient with abdominal pain with radiation to the back-found with very elevated total bilirubin and evidence on CT scan Of biliary dilatation. Plan at the present is for ERCP likely tomorrow and laparoscopic cholecystectomy at some point during this hospitalization I have discussed this with the patient Continue current treatment, patient may have clear liquids from surgical standpoint Subjective Patient currently resting comfortably. She denies any worsening abdominal pain or worsening nausea and vomiting since admission to the hospital. She denies shortness of breath. She denies any fevers, shakes, or chills. Physical Exam Gastrointestinal (Abdomen): Abdomen is soft, nonrigid, nondistended. At the time of my exam this morning she had minimal pain with palpation. There is no rebound tenderness or guarding. Results & Data Vital Signs (Past 12 Hours) Vital Signs Temp Pulse Resp BP Pulse Ox O2 Del Method 11/21/22 21:23 36.9 C 58 L 16 130/81 96 Room Air PG Care Time/CCT Total # of Minutes Spent Total Time Spent with Patient: Total time spent is greater than 50% in coordination of care (as documented) at patient's floor/unit and/or counseling patient: Coding Level of Care Code 49748 SUB INP/OBS CARE 25MIN Diagnoses Cholelithiasis K80.20 Choledocholithiasis K80.50
[2022-11-22 06:09] LABS: Basophils # (auto) 0.07 K/uL (0-0.2); Basophils % (auto) 0.8 %; Eosinophils % (auto) 4.5 %; Hematocrit (blood only) 34.8 % (37.0-47.0); Hemoglobin 10.8 g/dl (12.0-16.0); Immature Granulocytes # (auto) 0.07 K/uL (0.01-0.20); Immature Granulocytes % (auto) 0.8 %; Lymphocytes # (auto) 2.48 K/uL (1.2-3.4); Mean Corpuscular Hemoglobin 23.6 pg (25.0-34.0); Mean Platelet Volume 9.7 fL (9.4-12.4); Monocytes % (auto) 6.8 %; Neutrophils # (auto) 5.25 K/uL (1.40-6.50); Neutrophils % (auto) 59.1 %; Platelet Count 519 K/uL (130-400); RDW Standard Deviation 42.8 fL (36.4-46.3); Red Blood Count 4.58 M/uL (4.20-5.40); White Blood Count 8.87 K/ul (4.8-10.8)
[2022-11-22 06:22] LABS: Albumin Globulin Ratio 1.2 (0.9-2); Albumin Level 3.4 gm/dl (3.4-5.0); BUN Creatinine Ratio 8.5 (10-20); Bilirubin,Total 4.3 mg/dl (0.2-1.0); Est GFR (African American) 149.4 ml/min; Est GFR (Non-African American) 128.9 ml/min; Globulin 2.9 gm/dl (2.5-4.0); Potassium 3.3 mmol/L (3.5-5.1); Total Protein 6.3 gm/dl (6.0-8.3)
--- NOTE | 2022-11-22 11:26 | Hospitalist Progress Note ---
Date of Service November 22, 2022 Assessment & Plan (1) Acute cholecystitis: (2) Urinary tract infection: (3) Choledocholithiasis: Plan: Patient is a 32-year-old female who presented to the ED with abdominal pain, nausea, vomiting. On presentation to the ED, vitals stable. Afebrile. Saturating well on room air Labs reviewed; leukocytosis and thrombocytosis present on admission. Leukocytosis resolved. Microcytic anemia present; iron studies ordered for a.m. AST/AL T/ALP elevated. Total bilirubin elevated Urinalysis suggestive of infection CT abdomen and pelvis reviewed; distended gallbladder with cholelithiasis, intrahepatic and extrahepatic biliary duct dilation. Continue on IV Zosyn Follow-up on urine culture and blood culture Pain control with Toradol, morphine IV fluids with LR at 100 cc/h Discussed with GI; ERCP tentatively on Wednesday Clear liquid diet, n.p.o. from midnight General surgery consulted; laparoscopic cholecystectomy later in the hospitalization. (4) Anxiety and depression: Plan: Continue on venlafaxine (5) Morbid obesity: Plan DVT prophylaxis Lovenox Full code Please note the above document was generated using voice recognition software. It may contain grammatical, syntax or spelling errors. Any formal questions or concerns about the content, text or information contained within the body of this dictation should be directly addressed to the provider for clarification Admission and Anticipated Discharge Date Admission Date: November 21, 2022 Subjective Patient seen and examined at bedside. She is comfortable; not in distress. No fever or chills. Flank pain minimal. Review of Systems Review of Systems: All systems reviewed & are unremarkable except as noted in Subjective Physical Exam Physical Exam: Constitutional: Awake, alert oriented x3. Morbidly obese. Respiratory: normal respiratory effort, lungs clear to auscultation, no wheeze, rales, rhonchi. Normal insp/exp effort, no accessory muscle use Cardiovascular: RRR, no murmur, no edema Vessels: no JVD or carotid bruit Chest: normal inspection of chest Abdomen: Soft, nontender. Left costovertebral angle tender. Musculoskeletal: no cyanosis or clubbing, extremities motor strength 5/5 Skin: no rashes, warm and dry normal turgor Neurologic: PERRL, EOMI, accommodation nl, no face palsy, no dysarthria CN's II- XI intact bilaterally and moves all extremities Psychiatric: A+Ox3, euthymic affect Results & Data Results & Data Vital Signs (Past 12 Hours) Vital Signs Temp Pulse Resp BP Pulse Ox O2 Del Method 11/22/22 07:44 36.4 C L 53 L 16 124/84 100 Room Air Laboratory Results Laboratory Results WBC 8.87 K/ul (4.8-10.8) 11/22/22 05:34 RBC 4.58 M/uL (4.20-5.40) 11/22/22 05:34 Hgb 10.8 g/dl (12.0-16.0) L 11/22/22 05:34 Hct 34.8 % (37.0-47.0) L 11/22/22 05:34 MCV 76.0 fL (80.0-100.0) L 11/22/22 05:34 MCH 23.6 pg (25.0-34.0) L 11/22/22 05:34 MCHC 31.0 g/dL (32.0-36.0) L 11/22/22 05:34 RDW Std Deviation 42.8 fL (36.4-46.3) 11/22/22 05:34 RDW Coeff of [place] 16.0 % (11.5-14.5) H 11/22/22 05:34 Plt Count 519 K/uL (130-400) H 11/22/22 05:34 MPV 9.7 fL (9.4-12.4) 11/22/22 05:34 Immature Gran % (Auto) 0.8 % 11/22/22 05:34 Neut % (Auto) 59.1 % 11/22/22 05:34 Lymph % (Auto) 28.0 % 11/22/22 05:34 [place] % (Auto) 6.8 % 11/22/22 05:34 Eos % (Auto) 4.5 % 11/22/22 05:34 Baso % (Auto) 0.8 % 11/22/22 05:34 Neut # (Auto) 5.25 K/uL (1.40-6.50) 11/22/22 05:34 Lymph # (Auto) 2.48 K/uL (1.2-3.4) 11/22/22 05:34 [place] # (Auto) 0.60 K/uL (0.11-0.59) H 11/22/22 05:34 Eos # (Auto) 0.40 K/uL (0-0.50) 11/22/22 05:34 Baso # (Auto) 0.07 K/uL (0-0.2) 11/22/22 05:34 Immature Gran # (Auto) 0.07 K/uL (0.01-0.20) 11/22/22 05:34 Sodium 139 mmol/L (136-145) 11/22/22 05:34 Potassium 3.3 mmol/L (3.5-5.1) L 11/22/22 05:34 Chloride 106 mmol/L (98-107) 11/22/22 05:34 Carbon Dioxide 29 mmol/L (21-32) 11/22/22 05:34 Anion Gap 4 (3-11) 11/22/22 05:34 BUN 4 mg/dl (6-23) L 11/22/22 05:34 Creatinine 0.47 mg/dl (0.6-1.2) L 11/22/22 05:34 Est Cr Clr Drug Dosing 218.0 ml/min 11/22/22 05:34 Est GFR ( Amer) 149.4 ml/min 11/22/22 05:34 Est GFR (Non-Af Amer) 128.9 ml/min 11/22/22 05:34 BUN/Creatinine Ratio 8.5 (10-20) L 11/22/22 05:34 Glucose 98 mg/dl (70-99(Fasting)) 11/22/22 05:34 Calcium 8.0 mg/dl (8.6-10.3) L 11/22/22 05:34 Total Bilirubin 4.3 mg/dl (0.2-1.0) H 11/22/22 05:34 AST 89 U/L (13-39) H 11/22/22 05:34 ALT 236 U/L (7-52) H 11/22/22 05:34 Alkaline Phosphatase 250 U/L (34-104) H 11/22/22 05:34 Total Protein 6.3 gm/dl (6.0-8.3) 11/22/22 05:34 Albumin 3.4 gm/dl (3.4-5.0) 11/22/22 05:34 Globulin 2.9 gm/dl (2.5-4.0) 11/22/22 05:34 Albumin/Globulin Ratio 1.2 (0.9-2) 11/22/22 05:34 Lipase 4 U/L (11-82) L 11/21/22 12:50 Urine Color [place] 11/21/22 12:50 Urine Appearance Cloudy (Clear) A 11/21/22 12:50 Urine pH 5.5 (4.5-7.5) 11/21/22 12:50 Ur Specific [place] 1.030 (1.000-1.030) 11/21/22 12:50 Urine Protein 1+ (Negative) H 11/21/22 12:50 Urine Glucose (UA) Negative (Negative) 11/21/22 12:50 Urine Ketones Negative (Negative) 11/21/22 12:50 Urine Blood Negative (Negative) 11/21/22 12:50 Urine Nitrite Positive (Negative) A 11/21/22 12:50 Urine Bilirubin 3+ (Negative) H 11/21/22 12:50 Urine Urobilinogen Negative (Negative) 11/21/22 12:50 Ur Leukocyte Esterase 1+ (Negative) H 11/21/22 12:50 Urine WBC (Auto) 1-5 /hpf (0-5) 11/21/22 12:50 Urine RBC (Auto) 0-4 /hpf (0-4) 11/21/22 12:50 U Hyaline Cast (Auto) 0 /lpf (0-5) 11/21/22 12:50 U Epithel Cells (Auto) >30 /lpf (0-5) H 11/21/22 12:50 Urine Bacteria (Auto) 1+ (Negative) H 11/21/22 12:50 Urine Mucus Present (None Prsent) A 11/21/22 12:50 Urine Yeast Not Reportable 11/21/22 12:50 Urine Test Negative (Negative) 11/21/22 12:50 SARS-CoV-2, RNA, NAAT NEGATIVE (NEGATIVE) 11/21/22 14:25 Impressions Chest X-Ray 11/21/22 12:51 XR chest 1V portable HISTORY: 32 years-old Female sob, vomiting acute shortness of breath with nausea and vomiting COMPARISON: None TECHNIQUE: AP view of the chest FINDINGS: Cardiac silhouette is enlarged. Moderate hemidiaphragm elevation. Subsegmental right basilar atelectasis. No pneumothorax, pleural effusion or overt pulmonary edema. Bones appear grossly intact. IMPRESSION: Mild right basilar atelectasis. ACT 112: Negative or not required by law. The above report was generated using voice recognition software. It may contain grammatical, syntax or spelling errors. Electronically signed by: Lemuel Ortega M.D. 11/21/2022 1:10 PM Abdomen/Pelvis CT 11/21/22 13:[address] WITH IV CONTRAST CT DOSE: 1408.89 mGy.cm HISTORY: Acute nausea with vomiting and elevated LFTs vomiting, back pain, elevated lfts TECHNIQUE: Multiaxial CT images of the abdomen and pelvis were performed following the IV administration of 95 cc of Optiray, A dose lowering technique was utilized adhering to the principles of ALARA. COMPARISON STUDY: None. FINDINGS: Clear lung bases. No pneumatosis or pneumoperitoneum. Unremarkable spleen, pancreas and adrenal glands. Distended gallbladder with layering gallstones in the gallbladder lumen and neck. Common bile duct dilation measures up to 1.2 cm. No definite choledocholithiasis identified. Moderate intrahepatic biliary ductal dilation. Liver is mildly enlarged. Patency of the portal vein. Unremarkable kidneys. There are no bladder wall thickening which is partially decompressed. IUD of the mid uterus. 3.1 cm right ovarian cyst. Aorta and IVC are unremarkable. No lymphadenopathy. No bowel obstruction or bowel wall thickening. No CT evidence of acute appendicitis. Tiny fat filled umbilical hernia, diastases of 2 cm. No acute fracture. Transitional lumbosacral anatomy. IMPRESSION: 1. Distended gallbladder with cholelithiasis, intrahepatic and extrahepatic biliary duct dilation. No definite choledocholithiasis identified by CT. Correlation with serum bilirubin recommended. 2. No bowel obstruction or bowel wall thickening. ACT 112: Negative or not required by law. The above report was generated using voice recognition software. It may contain grammatical, syntax or spelling errors. Electronically signed by: Lemuel Ortega M.D. 11/21/2022 2:04 PM
[2022-11-22] MEDS ORDERED: POTASSIUM CHLORIDE CRTAB 20 MEQ TABCR PO STA (11:45)
[2022-11-22] MEDS: VENLAFAXINE HCL XR 150 MG CAPXR PO SCH (16:25)
[2022-11-22] MEDS: ONDANSETRON INJ 2 MG/ML 2 ML VIAL IV PRN (19:09)
[2022-11-23] MEDS: PIPERACILLIN/TAZOBACTAM 4.5 GM in DEXTROSE 5% 100 ML IV SCH ×2 (04:15→17:16)
[2022-11-23 06:37] LABS: Basophils # (auto) 0.08 K/uL (0-0.2); Eosinophils # (auto) 0.36 K/uL (0-0.50); Eosinophils % (auto) 4.6 %; Hematocrit (blood only) 34.9 % (37.0-47.0); Hemoglobin 10.8 g/dl (12.0-16.0); Immature Granulocytes # (auto) 0.08 K/uL (0.01-0.20); Lymphocytes # (auto) 2.19 K/uL (1.2-3.4); Lymphocytes % (auto) 28.1 %; Mean Corpuscular Hgb Conc 30.9 g/dL (32.0-36.0); Mean Corpuscular Volume 77.6 fL (80.0-100.0); Mean Platelet Volume 9.7 fL (9.4-12.4); Monocytes # (auto) 0.49 K/uL (0.11-0.59); Monocytes % (auto) 6.3 %; Platelet Count 451 K/uL (130-400); RDW Coefficient of Variation 16.3 % (11.5-14.5); RDW Standard Deviation 43.9 fL (36.4-46.3)
[2022-11-23 06:52] LABS: Alanine Aminotransferase 197 U/L (7-52); Albumin Globulin Ratio 1.1 (0.9-2); Albumin Level 3.2 gm/dl (3.4-5.0); Alkaline Phosphatase 250 U/L (34-104); Anion Gap 5 (3-11); Aspartate Aminotransferase 68 U/L (13-39); BUN Creatinine Ratio 6.8 (10-20); Bilirubin,Total 4.3 mg/dl (0.2-1.0); Blood Urea Nitrogen 3 mg/dl (6-23); Carbon Dioxide 28 mmol/L (21-32); Chloride 106 mmol/L (98-107); Creatinine Clr Calc Pharmacy 232.8 ml/min; Est GFR (African American) > 150.0 ml/min; Est GFR (Non-African American) 131.7 ml/min; Globulin 2.8 gm/dl (2.5-4.0); Glucose 93 mg/dl (70-99(Fasting)); Iron 63 mcg/dl (35-150); Potassium 3.5 mmol/L (3.5-5.1); Sodium 139 mmol/L (136-145)
[2022-11-23 07:11] LABS: Ferritin 23.5 ng/ml (8-388)
[2022-11-23] MEDS ORDERED: INDOMETHACIN 50 MG SUPP PR ONE ×3 (08:48→14:35)
--- NOTE | 2022-11-23 10:48 | Gastroenterology Progress Note ---
Date of Service November 23, 2022 Assessment & Plan (1) Choledocholithiasis: (2) Cholelithiasis: (3) Nausea and vomiting: Plan Pt is a 32 yo female w symptoms of n/v, upper abd pain, back pain since mid last week, noted to have elevated LFTs, cholelithiasis w intra/extrahepatic biliary ductal dilation, CBD of 1.2cm on CT abd/pelvis w contrast. Suspect she may have choledocholithiasis even though this was not evidently seen in CT. - NPO - Zosyn IV - Plan for EUS +/- ERCP by Dr. Lis Cox in OR today - GI to give further recs after procedure above completed - Surgery for cholecystectomy Admission and Anticipated Discharge Date Admission Date: November 21, 2022 Supervising Physician Co-Signing Physician Notes I saw and evaluated the patient. She presents with abdominal pain and elevated liver tests. EUS with ERCP have been requested for further evalaution. We discussed the risks to include bleeding, infection,perforation, pain, post-ercp pancreatitis, failed biliary cannulation and need for follow-up studies. Subjective Pt has less R sided abd pain. No n/v. Passing flatus. Denies fever, chills. Review of Systems Review of Systems: All systems reviewed & are unremarkable except as noted in HPI & below Physical Exam Constitutional: WD/WN, vitals as above well groomed, cooperative and comfortable Eyes: PERRL, conjunctivae normal, anicteric sclerae ENMT: external ear and nose normal, oropharynx normal Respiratory: normal respiratory effort, lungs clear to auscultation Cardiovascular: RRR, no murmur, no edema Gastrointestinal (Abdomen): Soft, hypoactive BS, RUQ ttp Skin: no rashes, warm and dry no jaundice Psychiatric: A+Ox3, euthymic affect Lymphatic: no lymphedema Results & Data Vital Signs (Past 12 Hours) Vital Signs Temp Pulse Resp BP Pulse Ox O2 Del Method 11/23/22 07:43 36.6 C 62 16 138/80 93 Room Air Laboratory Results Laboratory Results - last 24 hr 11/23/22 11/23/22 11/23/22 06:01 06:01 06:01 WBC 7.80 RBC 4.50 Hgb 10.8 L Hct 34.9 L MCV 77.6 L MCH 24.0 L MCHC 30.9 L RDW Std Deviation 43.9 RDW Coeff of [place] 16.3 H Plt Count 451 H MPV 9.7 Immature Gran % (Auto) 1.0 Neut % (Auto) 59.0 Lymph % (Auto) 28.1 [place] % (Auto) 6.3 Eos % (Auto) 4.6 Baso % (Auto) 1.0 Neut # (Auto) 4.60 Lymph # (Auto) 2.19 [place] # (Auto) 0.49 Eos # (Auto) 0.36 Baso # (Auto) 0.08 Immature Gran # (Auto) 0.08 Sodium 139 Potassium 3.5 Chloride 106 Carbon Dioxide 28 Anion Gap 5 BUN 3 L Creatinine 0.44 L Est Cr Clr Drug Dosing 232.8 Est GFR ( Amer) > 150.0 Est GFR (Non-Af Amer) 131.7 BUN/Creatinine Ratio 6.8 L Glucose 93 Calcium 8.0 L Iron 63 Unsaturated IBC 273 Ferritin 23.5 Total Bilirubin 4.3 H AST 68 H ALT 197 H Alkaline Phosphatase 250 H Total Protein 6.0 Albumin 3.2 L Globulin 2.8 Albumin/Globulin Ratio 1.1
--- NOTE | 2022-11-23 12:52 | Hospitalist Progress Note ---
Date of Service November 23, 2022 Assessment & Plan (1) Acute cholecystitis: (2) Urinary tract infection: (3) Choledocholithiasis: Plan: Patient is a 32-year-old female who presented to the ED with abdominal pain, nausea, vomiting. On presentation to the ED, vitals stable. Afebrile. Saturating well on room air Labs reviewed; leukocytosis and thrombocytosis present on admission. Leukocytosis resolved. Microcytic anemia present; iron studies suggestive of iron deficiency anemia; ferritin of 23.5. AST/AL T/ALP elevated. Total bilirubin elevated Urinalysis suggestive of infection CT abdomen and pelvis reviewed; distended gallbladder with cholelithiasis, intr ahepatic and extrahepatic biliary duct dilation. Urine culture no growth Blood culture no growth so far Continue on IV Zosyn Pain control with Toradol, morphine ERCP by GI today and laparoscopic cholecystectomy by surgery tomorrow N.p.o. from midnight (4) Anxiety and depression: Plan: Continue on venlafaxine (5) Morbid obesity: Plan DVT prophylaxis Lovenox currently on hold for the procedures. Full code Please note the above document was generated using voice recognition software. It may contain grammatical, syntax or spelling errors. Any formal questions or concerns about the content, text or information contained within the body of this dictation should be directly addressed to the provider for clarification Admission and Anticipated Discharge Date Admission Date: November 21, 2022 Subjective Patient seen and examined at bedside. She is comfortable; not in any distress. Denies abdominal pain and flank pain Review of Systems Review of Systems: All systems reviewed & are unremarkable except as noted in Subjective Physical Exam Physical Exam: Constitutional: Awake, alert oriented x3. Morbidly obese. Respiratory: normal respiratory effort, lungs clear to auscultation, no wheeze, rales, rhonchi. Normal insp/exp effort, no accessory muscle use Cardiovascular: RRR, no murmur, no edema Vessels: no JVD or carotid bruit Chest: normal inspection of chest Abdomen: Soft, nontender. Musculoskeletal: no cyanosis or clubbing, extremities motor strength 5/5 Skin: no rashes, warm and dry normal turgor Neurologic: PERRL, EOMI, accommodation nl, no face palsy, no dysarthria CN's II- XI intact bilaterally and moves all extremities Psychiatric: A+Ox3, euthymic affect Results & Data Results & Data Vital Signs (Past 12 Hours) Vital Signs Temp Pulse Resp BP Pulse Ox O2 Del Method 11/23/22 07:43 36.6 C 62 16 138/80 93 Room Air Laboratory Results Laboratory Results WBC 7.80 K/ul (4.8-10.8) 11/23/22 06:01 RBC 4.50 M/uL (4.20-5.40) 11/23/22 06:01 Hgb 10.8 g/dl (12.0-16.0) L 11/23/22 06:01 Hct 34.9 % (37.0-47.0) L 11/23/22 06:01 MCV 77.6 fL (80.0-100.0) L 11/23/22 06:01 MCH 24.0 pg (25.0-34.0) L 11/23/22 06:01 MCHC 30.9 g/dL (32.0-36.0) L 11/23/22 06:01 RDW Std Deviation 43.9 fL (36.4-46.3) 11/23/22 06:01 RDW Coeff of [place] 16.3 % (11.5-14.5) H 11/23/22 06:01 Plt Count 451 K/uL (130-400) H 11/23/22 06:01 MPV 9.7 fL (9.4-12.4) 11/23/22 06:01 Immature Gran % (Auto) 1.0 % 11/23/22 06:01 Neut % (Auto) 59.0 % 11/23/22 06:01 Lymph % (Auto) 28.1 % 11/23/22 06:01 [place] % (Auto) 6.3 % 11/23/22 06:01 Eos % (Auto) 4.6 % 11/23/22 06:01 Baso % (Auto) 1.0 % 11/23/22 06:01 Neut # (Auto) 4.60 K/uL (1.40-6.50) 11/23/22 06:01 Lymph # (Auto) 2.19 K/uL (1.2-3.4) 11/23/22 06:01 [place] # (Auto) 0.49 K/uL (0.11-0.59) 11/23/22 06:01 Eos # (Auto) 0.36 K/uL (0-0.50) 11/23/22 06:01 Baso # (Auto) 0.08 K/uL (0-0.2) 11/23/22 06:01 Immature Gran # (Auto) 0.08 K/uL (0.01-0.20) 11/23/22 06:01 Sodium 139 mmol/L (136-145) 11/23/22 06:01 Potassium 3.5 mmol/L (3.5-5.1) 11/23/22 06:01 Chloride 106 mmol/L (98-107) 11/23/22 06:01 Carbon Dioxide 28 mmol/L (21-32) 11/23/22 06:01 Anion Gap 5 (3-11) 11/23/22 06:01 BUN 3 mg/dl (6-23) L 11/23/22 06:01 Creatinine 0.44 mg/dl (0.6-1.2) L 11/23/22 06:01 Est Cr Clr Drug Dosing 232.8 ml/min 11/23/22 06:01 Est GFR ( Amer) > 150.0 ml/min 11/23/22 06:01 Est GFR (Non-Af Amer) 131.7 ml/min 11/23/22 06:01 BUN/Creatinine Ratio 6.8 (10-20) L 11/23/22 06:01 Glucose 93 mg/dl (70-99(Fasting)) 11/23/22 06:01 Calcium 8.0 mg/dl (8.6-10.3) L 11/23/22 06:01 Iron 63 mcg/dl (35-150) 11/23/22 06:01 Unsaturated IBC 273 mcg/dl (155-355) 11/23/22 06:01 Ferritin 23.5 ng/ml (8-388) 11/23/22 06:01 Total Bilirubin 4.3 mg/dl (0.2-1.0) H 11/23/22 06:01 AST 68 U/L (13-39) H 11/23/22 06:01 ALT 197 U/L (7-52) H 11/23/22 06:01 Alkaline Phosphatase 250 U/L (34-104) H 11/23/22 06:01 Total Protein 6.0 gm/dl (6.0-8.3) 11/23/22 06:01 Albumin 3.2 gm/dl (3.4-5.0) L 11/23/22 06:01 Globulin 2.8 gm/dl (2.5-4.0) 11/23/22 06:01 Albumin/Globulin Ratio 1.1 (0.9-2) 11/23/22 06:01 Lipase 4 U/L (11-82) L 11/21/22 12:50 Urine Color [place] 11/21/22 12:50 Urine Appearance Cloudy (Clear) A 11/21/22 12:50 Urine pH 5.5 (4.5-7.5) 11/21/22 12:50 Ur Specific [place] 1.030 (1.000-1.030) 11/21/22 12:50 Urine Protein 1+ (Negative) H 11/21/22 12:50 Urine Glucose (UA) Negative (Negative) 11/21/22 12:50 Urine Ketones Negative (Negative) 11/21/22 12:50 Urine Blood Negative (Negative) 11/21/22 12:50 Urine Nitrite Positive (Negative) A 11/21/22 12:50 Urine Bilirubin 3+ (Negative) H 11/21/22 12:50 Urine Urobilinogen Negative (Negative) 11/21/22 12:50 Ur Leukocyte Esterase 1+ (Negative) H 11/21/22 12:50 Urine WBC (Auto) 1-5 /hpf (0-5) 11/21/22 12:50 Urine RBC (Auto) 0-4 /hpf (0-4) 11/21/22 12:50 U Hyaline Cast (Auto) 0 /lpf (0-5) 11/21/22 12:50 U Epithel Cells (Auto) >30 /lpf (0-5) H 11/21/22 12:50 Urine Bacteria (Auto) 1+ (Negative) H 11/21/22 12:50 Urine Mucus Present (None Prsent) A 11/21/22 12:50 Urine Yeast Not Reportable 11/21/22 12:50 Urine Test Negative (Negative) 11/21/22 12:50 SARS-CoV-2, RNA, NAAT NEGATIVE (NEGATIVE) 11/21/22 14:25 Impressions Chest X-Ray 11/21/22 12:51 XR chest 1V portable HISTORY: 32 years-old Female sob, vomiting acute shortness of breath with nausea and vomiting COMPARISON: None TECHNIQUE: AP view of the chest FINDINGS: Cardiac silhouette is enlarged. Moderate hemidiaphragm elevation. Subsegmental right basilar atelectasis. No pneumothorax, pleural effusion or overt pulmonary edema. Bones appear grossly intact. IMPRESSION: Mild right basilar atelectasis. ACT 112: Negative or not required by law. The above report was generated using voice recognition software. It may contain grammatical, syntax or spelling errors. Electronically signed by: Lemuel Ortega M.D. 11/21/2022 1:10 PM Abdomen/Pelvis CT 11/21/22 13:[address] WITH IV CONTRAST CT DOSE: 1408.89 mGy.cm HISTORY: Acute nausea with vomiting and elevated LFTs vomiting, back pain, elevated lfts TECHNIQUE: Multiaxial CT images of the abdomen and pelvis were performed following the IV administration of 95 cc of Optiray, A dose lowering technique was utilized adhering to the principles of ALARA. COMPARISON STUDY: None. FINDINGS: Clear lung bases. No pneumatosis or pneumoperitoneum. Unremarkable spleen, pancreas and adrenal glands. Distended gallbladder with layering gallstones in the gallbladder lumen and neck. Common bile duct dilation measures up to 1.2 cm. No definite choledocholithiasis identified. Moderate intrahepatic biliary ductal dilation. Liver is mildly enlarged. Patency of the portal vein. Unremarkable kidneys. There are no bladder wall thickening which is partially decompressed. IUD of the mid uterus. 3.1 cm right ovarian cyst. Aorta and IVC are unremarkable. No lymphadenopathy. No bowel obstruction or bowel wall thickening. No CT evidence of acute appendicitis. Tiny fat filled umbilical hernia, diastases of 2 cm. No acute fracture. Transitional lumbosacral anatomy. IMPRESSION: 1. Distended gallbladder with cholelithiasis, intrahepatic and extrahepatic biliary duct dilation. No definite choledocholithiasis identified by CT. Correlation with serum bilirubin recommended. 2. No bowel obstruction or bowel wall thickening. ACT 112: Negative or not required by law. The above report was generated using voice recognition software. It may contain grammatical, syntax or spelling errors. Electronically signed by: Lemuel Ortega M.D. 11/21/2022 2:04 PM
[2022-11-23] MEDS ORDERED: PROPOFOL IV EMULSION 10 MG/ML 20 ML VIAL IV ONE ×3 (13:16→14:16)
[2022-11-23] MEDS ORDERED: LIDOCAINE 2% 2 ML VIAL/AMP(20MG/ML) INFIL ONE (13:17)
[2022-11-23] MEDS ORDERED: ROCURONIUM BROMIDE 10 MG/ML 5 ML VIAL IV ONE ×2 (13:17→13:58)
[2022-11-23] MEDS ORDERED: MIDAZOLAM HCL 1 MG/ML 2ML VIAL ONE (13:19)
[2022-11-23] MEDS ORDERED: ePHEDrine sulfate 50 MG/ML AMP IV PRN (13:27)
[2022-11-23] MEDS ORDERED: PROMETHAZINE HCL 12.5 MG in SODIUM CHLORIDE 0.9% 50 ML IV PRN (13:27)
[2022-11-23] MEDS ORDERED: FLUMAZENIL 0.1 MG/1 ML 10 ML VIAL IV PRN (13:27)
[2022-11-23] MEDS ORDERED: LABETALOL HCL IV 5 MG/ML 20ML IV PRN (13:27)
[2022-11-23] MEDS ORDERED: NALOXONE HCL 0.4 MG/1 ML VIAL/CARP IV PRN (13:27)
[2022-11-23] MEDS ORDERED: fentaNYL citrate PF 100 MCG/2 ML VIAL IV PRN (13:27)
[2022-11-23] MEDS ORDERED: ATROPINE SULFATE 0.1 MG/ML 10ML SYR IV PRN (13:27)
[2022-11-23] MEDS ORDERED: ONDANSETRON INJ 2 MG/ML 2 ML VIAL IV PRN (13:27)
--- NOTE | 2022-11-23 13:27 | Anesthesiology Consultation ---
Date of Service November 23, 2022 Assessment & Plan Chart Review Chart Review: Acceptable Risk for Surgery and Patient NOT seen in Pre Admission Testing Consults Requested none ASA ASA3 Proposed Anesthesia Anesthesia Type: General Risk / Benefits Reviewed With: PT / POA / Parent / Guardian, Accepts Plan and Informed Consent Obtained History Surgery Operation Date: 11/23/22 09:40 Proposed Procedures p Endoscopic Retrograde Cholangiopancreato - Lis Cox, s Endoscopic Ultrasonography Upper - Lis Cox DO Operation Date: 11/24/22 11:30 Proposed Procedures p Laparoscopic Cholecystectomy - Yovani Thornton MD, FACS Height/Weight Height: 5 ft 2 in Weight: 129.5 kg Allergies Allergy/AdvReac Type Severity Reaction Status Date / Time onion Allergy Hives Verified 06/30/22 06:31 Medications Home Medications Medication Instructions Recorded Confirmed Last Taken ibuprofen 600 mg tablet 600 mg PO Q6 PRN pain #40 tabs 07/02/22 11/21/22 Unknown levonorgestrel 21 mcg/24 hours (8 21 mcg intrauterine DIRECTED 11/21/22 11/21/22 1 Month Ago yrs) 52 mg intrauterine device ~10/22/22 (Mirena) venlafaxine 150 mg 150 mg PO DAILY 11/21/22 11/21/22 11/20/22 capsule,extended release 24 hr Active Medications Generic Name Dose Route Start Last Admin Trade Name Freq PRN Reason Stop Dose Admin Enoxaparin Sodium 40 mg 11/21/22 16:55 11/21/22 18:08 Enoxaparin Inj 40 Mg/0.4 Ml Syr SQ 12/21/22 16:54 40 mg Q24H [place] Administration Piperacillin Sod/Tazobactam 120 mls @ 30 mls/hr 11/21/22 20:00 11/23/22 08:30 Sod 4.5 gm/ Dextrose IV 12/01/22 19:59 Infused Q8H [place] Infusion Protocol Morphine Sulfate 1 mg 11/21/22 16:55 11/21/22 17:21 Morphine Sulfate 2 Mg/Ml Carp IV 12/05/22 16:54 1 mg Q4H PRN Administration severe pain Ondansetron HCl 4 mg 11/21/22 16:55 11/22/22 19:09 Ondansetron Inj 2 Mg/Ml 2 Ml Vial IV 12/21/22 16:54 4 mg Q6H PRN Administration Nausea Venlafaxine HCl 150 mg 11/21/22 17:30 11/22/22 16:25 Venlafaxine Hcl Xr 150 Mg Capxr PO 12/21/22 17:29 150 mg DAILY@1600 [place] Administration NPO Date Last Intake of Fluids: 11/22/22 Time Last Intake of Fluids: 22:00 Date Last Intake of Solids: 11/22/22 Time Last Intake of Solids: 18:00 Past Medical History Medical History Allergic rhinitis Anxiety and depression Breech presentation Morbid obesity Exercise / Class Metabolic Activity II 4-5 Yardwork/Stairs/Walk up hill Past Family History Family History Father Family history of diabetes mellitus Grandfather (Maternal) Family history of diabetes mellitus Other Morbid obesity Past Surgical History Surgical History History of appendectomy History of tonsillectomy Hx of dilation and curettage Past Anesthesia History No Hx of Anesthesia Complications and No Family Hx of Anesthesia Complications History of PONV No Hx of PONV and No Hx of Motion Sickness Social History Smoking Status: Former smoker tobacco type: cigarettes Smoking cigarettes per day: CUTTING BACK 4-5 CIGS A DAY-X SEVERAL YRS Do You Dip or Chew Tobacco: No Hx Alcohol Use: Yes Alcohol type: wine alcohol intake frequency: holidays/special occasions only Hx Substance Use: No substance use type: does not use Physical Exam Vital Signs Last Vital Signs Temp 37.1 C 11/23/22 13:10 Pulse 61 11/23/22 13:10 Resp 18 11/23/22 13:10 BP 130/79 11/23/22 13:10 Pulse Ox 96 11/23/22 13:10 O2 Del Method Room Air 11/23/22 13:10 Constitutional + morbidly obese; no acute distress ENMT Mouth: no dentition abnormality Thyromental Distance: < 3.5 Finger Breadths Mallampati Class: II Neck normal visual inspection and trachea midline; neck extension not limited Respiratory normal respiratory effort Auscultation: lungs clear to auscultation bilaterally Cardiovascular Rate/Rhythm: regular rate and regular rhythm Heart Sounds: no murmur Vessels: no carotid bruit Musculoskeletal Spine: normal cervical ROM and no pain with cervical ROM Extremities: extremities normal to inspection; full ROM of extremities Neurologic moves all extremities Motor/Sensory: no sensory deficit Psychiatric Orientation: alert and oriented x 3 Testing Laboratory Results 11/23/22 06:01 11/23/22 06:01 Urine Color [place] 11/21/22 12:50 Urine Appearance Cloudy (Clear) A 11/21/22 12:50 Urine pH 5.5 (4.5-7.5) 11/21/22 12:50 Ur Specific [place] 1.030 (1.000-1.030) 11/21/22 12:50 Urine Protein 1+ (Negative) H 11/21/22 12:50 Urine Glucose (UA) Negative (Negative) 11/21/22 12:50 Urine Ketones Negative (Negative) 11/21/22 12:50 Urine Nitrite Positive (Negative) A 11/21/22 12:50 Ur Leukocyte Esterase 1+ (Negative) H 11/21/22 12:50 Urine WBC (Auto) 1-5 /hpf (0-5) 11/21/22 12:50 Urine RBC (Auto) 0-4 /hpf (0-4) 11/21/22 12:50 U Hyaline Cast (Auto) 0 /lpf (0-5) 11/21/22 12:50 U Epithel Cells (Auto) >30 /lpf (0-5) H 11/21/22 12:50 Urine Bacteria (Auto) 1+ (Negative) H 11/21/22 12:50 Urine Test Negative (Negative) 11/21/22 12:50 11/21/22 12:50 Urine Culture - Final Urine,Clean Catch More than three types of organisms present, all moderate counts mixed probable skin chris. No further identifications or sensitivities to follow. 11/21/22 16:28 Aerobic Blood Culture - Preliminary Blood No growth in Aerobic bottle after 24 hours. Anaerobic Blood Culture - Preliminary No growth in Anaerobic bottle after 24 hours. 11/21/22 16:29 Aerobic Blood Culture - Preliminary Blood No growth in Aerobic bottle after 24 hours. Anaerobic Blood Culture - Preliminary No growth in Anaerobic bottle after 24 hours. 11/21/22 12:50 Urine Test Negative
--- NOTE | 2022-11-23 13:46 | GI REPORT ---
Patient Name: Jesus Downs Procedure Date: 11/23/2022 1:14 PM Date of : 1990 Admit Type: Inpatient Age: 32 Gender: Female Attending MD: Lis Cox DO, Procedure: Upper GI endoscopy Providers: Lis Cox DO Referring MD: Jason Velazquez Md, Yovani Thornton Indications: Epigastric abdominal pain, Abdominal pain in the right upper quadrant Medicines: General Anesthesia Complications: No immediate complications. Estimated blood loss: Minimal. Estimated Blood Loss: Estimated blood loss was minimal. Procedure: Pre-Anesthesia Assessment: - Prior to the procedure, a History and Physical was performed, and patient medications, allergies and sensitivities were reviewed. The patient's tolerance of previous anesthesia was reviewed. - The risks and benefits of the procedure and the sedation options and risks were discussed with the patient. All questions were answered and informed consent was obtained. - Patient identification and proposed procedure were verified prior to the procedure by the physician, the nurse and the vice president residential [employer]. The procedure was verified in the procedure room. - Pre-procedure physical examination revealed no contraindications to sedation. - ASA Grade Assessment: III - A patient with severe systemic disease. - After reviewing the risks and benefits, the patient was deemed in satisfactory condition to undergo the procedure. - The anesthesia plan was to use general anesthesia. - Immediately prior to administration of medications, the patient was re-assessed for adequacy to receive sedatives. - The heart rate, respiratory rate, oxygen saturations, blood pressure, adequacy of pulmonary ventilation, and response to care were monitored throughout the procedure. - The physical status of the patient was re-assessed after the procedure. After obtaining informed consent, the endoscope was passed under direct vision. Throughout the procedure, the patient's blood pressure, pulse, and oxygen saturations were monitored continuously. The Endoscope was introduced through the mouth, and advanced to the third part of duodenum. The upper GI endoscopy was accomplished without difficulty. The patient tolerated the procedure well. Findings: The examined esophagus was normal. The Z-line was regular and was found 36 cm from the incisors. The entire examined stomach was normal. The examined duodenum was normal. Impression: - Normal esophagus. - Z-line regular, 36 cm from the incisors. - Normal stomach. - Normal examined duodenum. - No specimens collected. Recommendation: - Perform an upper endoscopic ultrasound (UEUS) today. Lis Cox D.O. Lis Cox, 11/23/2022 1:46:11 PM This report has been signed electronically. Note Initiated On: 11/23/2022 1:14 PM Number of Addenda: 0 I attest to the content of the Intraoperative Record and orders documented therein, exceptions below {[id number]}
--- NOTE | 2022-11-23 13:56 | GI REPORT ---
Patient Name: Jesus Downs Procedure Date: 11/23/2022 1:12 PM Date of : 1990 Admit Type: Inpatient Age: 32 Gender: Female Attending MD: Lis Cox DO, Procedure: Upper EUS Providers: Lis Cox DO Referring MD: Jason Velazquez Md, Yovani Thornton Indications: Abnormal liver function test, Suspected choledocholithiasis Medicines: General Anesthesia Complications: No immediate complications. Estimated blood loss: Minimal. Estimated Blood Loss: Estimated blood loss was minimal. Procedure: Pre-Anesthesia Assessment: - Prior to the procedure, a History and Physical was performed, and patient medications, allergies and sensitivities were reviewed. The patient's tolerance of previous anesthesia was reviewed. - The risks and benefits of the procedure and the sedation options and risks were discussed with the patient. All questions were answered and informed consent was obtained. - Patient identification and proposed procedure were verified prior to the procedure by the physician, the nurse and the sample wrapper. The procedure was verified in the pre-procedure area in the procedure room. - Pre-procedure physical examination revealed no contraindications to sedation. - ASA Grade Assessment: III - A patient with severe systemic disease. - After reviewing the risks and benefits, the patient was deemed in satisfactory condition to undergo the procedure. - The anesthesia plan was to use general anesthesia. - Immediately prior to administration of medications, the patient was re-assessed for adequacy to receive sedatives. - The heart rate, respiratory rate, oxygen saturations, blood pressure, adequacy of pulmonary ventilation, and response to care were monitored throughout the procedure. - The physical status of the patient was re-assessed after the procedure. After obtaining informed consent, the endoscope was passed under direct vision. Throughout the procedure, the patient's blood pressure, pulse, and oxygen saturations were monitored continuously. The Scope was introduced through the mouth, and advanced to the third part of duodenum. The upper EUS was accomplished without difficulty. The patient tolerated the procedure well. Findings: ENDOSONOGRAPHIC FINDING: : There was no sign of significant endosonographic abnormality in the ampulla. No pathologic lymphadenopathy and no masses were identified. One stone was visualized endosonographically in the common bile duct. The stone measured 6 mm in greatest dimension. It was hyperechoic and characterized by shadowing. Multiple stones were visualized endosonographically in the gallbladder. They were hyperechoic. Extensive hyperechoic material consistent with sludge was visualized endosonographically in the gallbladder. There was abnormal echogenicity in the visualized portion of the liver. This area was hyperechoic. There was no sign of significant endosonographic abnormality in the entire pancreas. The pancreatic duct measured up to 2 mm in diameter. No masses, no cysts, the pancreatic duct was thin in caliber. No lymphadenopathy seen. There was no sign of significant endosonographic abnormality in the left adrenal gland. No adrenal gland enlargement was identified. Impression: - There was no sign of significant pathology in the ampulla. - One stone was visualized endosonographically in the common bile duct. - Multiple stones were visualized endosonographically in the gallbladder. - Hyperechoic material consistent with sludge was visualized endosonographically in the gallbladder. - There was abnormal echogenicity in the visualized portion of the liver. This was hyperechoic. Tissue has not been obtained. However, the endosonographic appearance is suggestive of fatty infiltration. - There was no sign of significant pathology in the entire pancreas. - Endosonographic images of the left adrenal gland were unremarkable. - No specimens collected. Recommendation: - Perform an ERCP today. Lis Cox D.O. iLs Cox, 11/23/2022 1:55:59 PM This report has been signed electronically. Note Initiated On: 11/23/2022 1:12 PM Number of Addenda: 0 I attest to the content of the Intraoperative Record and orders documented therein, exceptions below {[id number]}
[2022-11-23] MEDS ORDERED: GLYCOPYRROLATE 0.2 MG/ML VIAL ONE (13:58)
[2022-11-23] MEDS ORDERED: ONDANSETRON INJ 2 MG/ML 2 ML VIAL ONE (13:58)
[2022-11-23] MEDS ORDERED: DEXAMETHASONE SOD INJ 4 MG/ML VIAL ONE (13:58)
[2022-11-23] MEDS ORDERED: SUGAMMADEX SODIUM 200 MG/2 ML VIAL IV ONE (14:39)
--- NOTE | 2022-11-23 14:53 | GI REPORT ---
Patient Name: Jesus Downs Procedure Date: 11/23/2022 1:10 PM Date of : 1990 Admit Type: Inpatient Age: 32 Gender: Female Attending MD: Lis Cox DO, Procedure: ERCP Providers: Lis Cox DO Referring MD: Yovani Thornton, Jason Velazquez Md Indications: Abdominal pain of suspected biliary origin, Elevated liver enzymes Medicines: General Anesthesia Complications: No immediate complications. Estimated blood loss: Minimal. Estimated Blood Loss: Estimated blood loss was minimal. Procedure: Pre-Anesthesia Assessment: - Prior to the procedure, a History and Physical was performed, and patient medications, allergies and sensitivities were reviewed. The patient's tolerance of previous anesthesia was reviewed. - The risks and benefits of the procedure and the sedation options and risks were discussed with the patient. All questions were answered and informed consent was obtained. - Patient identification and proposed procedure were verified prior to the procedure by the physician, the nurse and the decorating instructor. The procedure was verified in the procedure room. - Pre-procedure physical examination revealed no contraindications to sedation. - ASA Grade Assessment: III - A patient with severe systemic disease. - After reviewing the risks and benefits, the patient was deemed in satisfactory condition to undergo the procedure. - The anesthesia plan was to use general anesthesia. - Immediately prior to administration of medications, the patient was re-assessed for adequacy to receive sedatives. - The heart rate, respiratory rate, oxygen saturations, blood pressure, adequacy of pulmonary ventilation, and response to care were monitored throughout the procedure. - The physical status of the patient was re-assessed after the procedure. After obtaining informed consent, the scope was passed under direct vision. Throughout the procedure, the patient's blood pressure, pulse, and oxygen saturations were monitored continuously. The Duodenoscope was introduced through the mouth, and advanced to the duodenum and used to inject contrast into the bile duct. The patient tolerated the procedure well. The ERCP was performed with moderate difficulty due to challenging cannulation because of inadequate scope positioning and an impacted stone. Findings: The data collector film was normal. The esophagus was successfully intubated under direct vision without detailed examination of the pharynx, larynx, and associated structures, and upper GI tract. The upper GI tract was grossly normal. The major papilla contained a stone impacted in the distal duct. The bile duct could not be cannulated with the Fusion OMNI sphincterotome and [place] with a 0.025 in Angled Visiglide. A biliary pre-cut sphincterotomy was made with a needle knife using a freehand technique using ERBE electrocautery. There was no post-sphincterotomy bleeding. Deep cannulation of the ventral pancreatic duct was accomplished with the short-nosed traction sphincterotome and guidewire. Due to difficulty of positioning, one 5 Fr by 5 cm pancreatic stent with a full external pigtail and no internal flaps was placed 5 cm into the ventral pancreatic duct to help prevent PEP. Clear fluid flowed through the stent. The stent was in good position. The bile duct was deeply cannulated with the short-nosed traction sphincterotome and 0.025 in Visiglide guidewire. Contrast was injected. I personally interpreted the bile duct images. Contrast extended to the hepatic ducts. The lower third of the main bile duct contained two stones. Biliary sphincterotomy was made with a monofilament CleverCut distal wire sphincterotome using ERBE electrocautery. There was no post-sphincterotomy bleeding. To discover objects, the biliary tree was swept with a 12 mm balloon starting at the bifurcation. Two stones were removed. No stones remained. Sludge was swept from the duct. One 10 Fr by 9 cm biliary stent with a single external flap and a single internal flap was placed 9 cm into the common bile duct. Bile flowed through the stent. The stent was in good position. The endoscope was withdrawn from the patient. Indomethacin 100 mg was given via suppository to decrease the risk of post-ERCP pancreatitis (PEP). Impression: - A stone was seen in the major papilla. - Choledocholithiasis was found. Complete removal was accomplished by biliary sphincterotomy and balloon extraction. - One prophylactic pancreatic stent was placed into the ventral pancreatic duct. - One biliary stent was placed into the common bile duct. - Indomethacin given to decrease risk of post-ERCP pancreatitis. Recommendation: - Clear liquid diet today. - Use broad spectrum antibiotics for 2 weeks. - Repeat ERCP in 6 weeks to remove stent. - Cholecytectomy per General Surgery. Lis Cox D.O. Lis Cox DO 11/23/2022 2:52:32 PM This report has been signed electronically. Note Initiated On: 11/23/2022 1:10 PM Number of Addenda: 0 I attest to the content of the Intraoperative Record and orders documented therein, exceptions below {[id number]}
--- NOTE | 2022-11-23 14:54 | Post Operative Brief Note ---
Immediate Post Op Note v1 Date of Surgery November 23, 2022 Pre & Post Diagnosis 11/23/22 EGD EUS ERCP with biliary sphincterotomy / gallstone extraction/ Biliary and pancretic stent placement. I identified the patient and participated in the time-out.: Yes Procedure Operation Date: 11/24/22 11:30 <No data on this case meets the specified criteria> Surgeon Lis Cox, DO Cuprous Chloride Operator none Estimated Blood Loss 0 Findings Consistent with Post-Op Diagnosis
--- NOTE | 2022-11-23 14:56 | Communication Note ---
Date of Service: November 23, 2022 The patient underwent upper endoscopy, endoscopic ultrasound and ultimately ERCP today. She was found to have a stone impacted in the distal common bile duct. The gallstone was removed after biliary sphincterotomy and gallstone extraction with improvement. We did place a prophylactic pancreatic stent in addition to a biliary stent today. Recomendations: May have clears today Continue IV hydration Antibiotic coverage for 2 weeks please Cholecystectomy per general surgery repeat ERCP in 6 weeks for stent removal No NSAIDS for 1 week please Please call with any questions.
[2022-11-23] MEDS ORDERED: PHENYLEPHRINE HCL 10 MG/ML VIAL ONE (15:01)
--- NOTE | 2022-11-23 15:23 | Anesthesiology Progress Note ---
Date of Service November 23, 2022 Anesthesia Post Procedure Vital Signs Vital Signs: Temp Pulse Pulse Resp BP Pulse Ox O2 Del Method 11/23/22 15:20 36.7 C 53 L 14 121/82 95 Nasal Cannula 11/23/22 15:10 62 14 125/69 98 Nasal Cannula 11/23/22 15:00 71 16 111/86 97 Nasal Cannula 11/23/22 14:57 36.4 C L 65 15 112/77 99 Nasal Cannula 11/23/22 13:10 37.1 C 61 18 130/79 96 Room Air 11/23/22 07:43 36.6 C 62 16 138/80 93 Room Air 11/22/22 21:01 36.5 C 62 18 109/72 100 Room Air O2 Flow Rate 11/23/22 15:20 2 11/23/22 15:10 2 11/23/22 15:00 2 11/23/22 14:57 3 11/23/22 13:10 11/23/22 07:43 11/22/22 21:01 Pain Intensity Back: Pain Intensity: 4 Transfer of Care Handoff Completed per policy Notes Mental Status: alert / awake / arousable Patient Amnestic to Procedure: Yes Nausea / Vomiting: adequately controlled Pain: adequately controlled Airway Patency, RR, SpO2: stable & adequate BP & HR: stable & adequate Hydration State: stable & adequate Anesthetic Complications: no major complications apparent
[2022-11-23] MEDS ORDERED: PROMETHAZINE HCL 12.5 MG in SODIUM CHLORIDE 0.9% 50 ML IV ONE (16:15)
[2022-11-23] MEDS ORDERED: GLUCAGON FOR INJ 1 MG VIAL ONE (17:38)
[2022-11-23] MEDS: VENLAFAXINE HCL XR 150 MG CAPXR PO SCH (19:10)
--- NOTE | 2022-11-23 19:38 | Fluoroscopy Report ---
[place] ERCP biliary ductal CLINICAL HISTORY: ERCP. Elevated LFTs. Mild duct dilatation. COMPARISON STUDY: Abdomen and pelvis CT 11/21/2022. FLUOROSCOPY TIME: 56 seconds FLUOROSCOPY IMAGES: 2 Ka,r: 29.4 mGy FINDINGS: The endoscope is seen at the second portion of the duodenum. Contrast was not identified wi thin the common bile duct or main pancreatic duct on this study. IMPRESSION: Fluoroscopic assistance as above. ACT 112: Negative or not required by law. Electronically signed by: Samson Suarez M.D. 11/23/2022 7:36 PM
[2022-11-23] MEDS ORDERED: Nursing to Pharmacy Communication SCH (19:45)
[2022-11-24] MEDS: PIPERACILLIN/TAZOBACTAM 4.5 GM in DEXTROSE 5% 100 ML IV SCH ×3 (01:30→18:18)
--- NOTE | 2022-11-24 06:10 | Surgery Progress Note ---
Date of Service November 24, 2022 Assessment & Plan (1) Choledocholithiasis: Plan: Patient doing well status post ERCP 2 stones and sludge removed from the common bile duct Pancreatic and common bile duct stents placed Patient is for laparoscopic cholecystectomy later this morning She is on IV antibiotics Admission and Anticipated Discharge Date Admission Date: November 21, 2022 Results & Data Vital Signs (Past 12 Hours) Vital Signs Temp Pulse Resp BP BP Pulse Ox O2 Del Method 11/24/22 03:33 36.8 C 65 16 118/78 96 Room Air 11/23/22 22:34 36.8 C 61 18 115/71 97 Room Air 11/23/22 19:30 37 C 50 L 16 111/70 97 Room Air 11/23/22 18:34 37.3 C 57 L 16 136/84 98 Room Air PG Care Time/CCT Total # of Minutes Spent Total Time Spent with Patient: Total time spent is greater than 50% in coordination of care (as documented) at patient's floor/unit and/or counseling patient: Coding Level of Care Code None Diagnoses Choledocholithiasis K80.50
[2022-11-24 07:05] LABS: Basophils # (auto) 0.06 K/uL (0-0.2); Basophils % (auto) 0.4 %; Eosinophils # (auto) 0.02 K/uL (0-0.50); Eosinophils % (auto) 0.1 %; Hematocrit (blood only) 32.9 % (37.0-47.0); Hemoglobin 10.2 g/dl (12.0-16.0); Immature Granulocytes # (auto) 0.11 K/uL (0.01-0.20); Immature Granulocytes % (auto) 0.8 %; Lymphocytes # (auto) 2.74 K/uL (1.2-3.4); Lymphocytes % (auto) 19.3 %; Mean Corpuscular Hemoglobin 23.7 pg (25.0-34.0); Mean Corpuscular Volume 76.5 fL (80.0-100.0); Monocytes # (auto) 0.78 K/uL (0.11-0.59); Monocytes % (auto) 5.5 %; Neutrophils # (auto) 10.46 K/uL (1.40-6.50); Neutrophils % (auto) 73.9 %; Platelet Count 462 K/uL (130-400); RDW Coefficient of Variation 16.7 % (11.5-14.5); RDW Standard Deviation 43.8 fL (36.4-46.3); White Blood Count 14.17 K/ul (4.8-10.8)
[2022-11-24 07:29] LABS: Alanine Aminotransferase 155 U/L (7-52); Albumin Globulin Ratio 1.2 (0.9-2); Albumin Level 3.4 gm/dl (3.4-5.0); Alkaline Phosphatase 238 U/L (34-104); Anion Gap 5 (3-11); Aspartate Aminotransferase 40 U/L (13-39); BUN Creatinine Ratio 10.9 (10-20); Bilirubin,Total 1.7 mg/dl (0.2-1.0); Blood Urea Nitrogen 5 mg/dl (6-23); Calcium 8.2 mg/dl (8.6-10.3); Carbon Dioxide 30 mmol/L (21-32); Chloride 104 mmol/L (98-107); Creatinine Clr Calc Pharmacy 222.7 ml/min; Est GFR (African American) > 150.0 ml/min; Est GFR (Non-African American) 129.8 ml/min; Globulin 2.8 gm/dl (2.5-4.0); Glucose 99 mg/dl (70-99(Fasting)); Potassium 3.7 mmol/L (3.5-5.1); Sodium 139 mmol/L (136-145); Total Protein 6.2 gm/dl (6.0-8.3)
--- NOTE | 2022-11-24 08:36 | Gastroenterology Progress Note ---
Date of Service November 24, 2022 Assessment & Plan (1) Choledocholithiasis: Plan: Pt is a 32 yo female w symptoms of n/v, upper abd pain, back pain since mid last week, noted to have elevated LFTs, cholelithiasis w intra/extrahepatic biliary ductal dilation, CBD of 1.2cm on CT abd/pelvis w contrast. EUS/ERCP done 11/23. Found to have impacted CBD stone s/p removal and biliary sphincterectomy. Prophylactic pancreatic stent and biliary stent placed. LFTs trending down. She is scheduled for cholecystectomy today - NPO - Cholecystectomy by surgery - Continue antibiotics coverage for 2 weeks total - Repeat ERCP in 6-10 week's time for stent removal - Avoid NSAIDs x 1 week - Trend LFTs - GI to sign off; pls recall prn Admission and Anticipated Discharge Date Admission Date: November 21, 2022 Supervising Physician Co-Signing Physician Notes I personally saw and evaluated the patient on 11/24/2022 with MATT Hatch and agree with her findings and plan of care. Patient is s/p ERCP yesterday with CBD stone removal and biliary adn pancreatic duct stent placement. Today she feels well. No abdominal pain just feels "gassy." Tolerated a liquid diet last night. Going for cholecystectomy today with surgery. LFTs are all downtrending. We will arrange outpatient ERCP in 6 weeks for stent removal. Continue to trend daily LFTs. Antibiotic coverage for 2 weeks. No NSAIDs for 1 week. GI will sign off but please call back with questions. Aileen Blnak, DO Gastroenterology and Hepatology Subjective Pt reports less abd pain, no n/v. Feels "gassy". NPO for cholecystectomy today. Review of Systems 2 Review of Systems: All systems reviewed & are unremarkable except as noted in HPI & below Physical Exam Constitutional: WD/WN, vitals as above well groomed, cooperative and comfortable Eyes: PERRL, conjunctivae normal, anicteric sclerae ENMT: external ear and nose normal, oropharynx normal Respiratory: normal respiratory effort, lungs clear to auscultation Cardiovascular: RRR, no murmur, no edema Gastrointestinal (Abdomen): Mild TTP RUQ, BS present, soft Skin: no rashes, warm and dry no jaundice Psychiatric: A+Ox3, euthymic affect Lymphatic: no lymphedema Results & Data Vital Signs (Past 12 Hours) Vital Signs Temp Pulse Resp BP BP Pulse Ox O2 Del Method 11/24/22 07:54 36.8 C 62 16 126/75 95 Room Air 11/24/22 03:33 36.8 C 65 16 118/78 96 Room Air 11/23/22 22:34 36.8 C 61 18 115/71 97 Room Air
[2022-11-24] MEDS ORDERED: fentaNYL citrate PF 100 MCG/2 ML VIAL IV PRN (10:53)
[2022-11-24] MEDS ORDERED: ePHEDrine sulfate 50 MG/ML AMP IV PRN (10:53)
[2022-11-24] MEDS ORDERED: ONDANSETRON INJ 2 MG/ML 2 ML VIAL IV PRN (10:53)
[2022-11-24] MEDS ORDERED: ATROPINE SULFATE 0.1 MG/ML 10ML SYR IV PRN (10:53)
--- NOTE | 2022-11-24 10:53 | Anesthesiology Consultation ---
Date of Service November 24, 2022 Assessment & Plan Chart Review Chart Review: Acceptable Risk for Surgery and Patient NOT seen in Pre Admission Testing Consults Requested none ASA ASA3 Proposed Anesthesia Anesthesia Type: General Risk / Benefits Reviewed With: PT / POA / Parent / Guardian, Accepts Plan and Informed Consent Obtained History Surgery Operation Date: 11/23/22 09:40 Proposed Procedures p Endoscopic Retrograde Cholangiopancreato - Lis Cox, s Endoscopic Ultrasonography Upper - Lis Cox DO Operation Date: 11/24/22 11:30 Proposed Procedures p Laparoscopic Cholecystectomy - Yovani Thornton MD, FACS Height/Weight Height: 5 ft 2 in Weight: 129.5 kg Allergies Allergy/AdvReac Type Severity Reaction Status Date / Time onion Allergy Hives Verified 06/30/22 06:31 Medications Home Medications Medication Instructions Recorded Confirmed Last Taken ibuprofen 600 mg tablet 600 mg PO Q6 PRN pain #40 tabs 07/02/22 11/21/22 Unknown levonorgestrel 21 mcg/24 hours (8 21 mcg intrauterine DIRECTED 11/21/22 11/21/22 1 Month Ago yrs) 52 mg intrauterine device ~10/22/22 (Mirena) venlafaxine 150 mg 150 mg PO DAILY 11/21/22 11/21/22 11/20/22 capsule,extended release 24 hr Active Medications Generic Name Dose Route Start Last Admin Trade Name Freq PRN Reason Stop Dose Admin Enoxaparin Sodium 40 mg 11/21/22 16:55 11/21/22 18:08 Enoxaparin Inj 40 Mg/0.4 Ml Syr SQ 12/21/22 16:54 40 mg Q24H [place] Administration Piperacillin Sod/Tazobactam 120 mls @ 30 mls/hr 11/21/22 20:00 11/24/22 10:35 Sod 4.5 gm/ Dextrose IV 12/01/22 19:59 30 mls/hr Q8H [place] Administration Protocol Morphine Sulfate 1 mg 11/21/22 16:55 11/21/22 17:21 Morphine Sulfate 2 Mg/Ml Carp IV 12/05/22 16:54 1 mg Q4H PRN Administration severe pain Ondansetron HCl 4 mg 11/21/22 16:55 11/22/22 19:09 Ondansetron Inj 2 Mg/Ml 2 Ml Vial IV 12/21/22 16:54 4 mg Q6H PRN Administration Nausea Venlafaxine HCl 150 mg 11/21/22 17:30 11/23/22 19:10 Venlafaxine Hcl Xr 150 Mg Capxr PO 12/21/22 17:29 150 mg DAILY@1600 [place] Administration NPO Date Last Intake of Fluids: 11/23/22 Time Last Intake of Fluids: 23:00 Date Last Intake of Solids: 11/23/22 Time Last Intake of Solids: 23:00 Past Medical History Medical History Allergic rhinitis Anxiety and depression Breech presentation Morbid obesity Exercise / Class Metabolic Activity II 4-5 Yardwork/Stairs/Walk up hill Past Family History Family History Father Family history of diabetes mellitus Grandfather (Maternal) Family history of diabetes mellitus Other Morbid obesity Past Surgical History Surgical History History of appendectomy History of tonsillectomy Hx of dilation and curettage Past Anesthesia History No Hx of Anesthesia Complications and No Family Hx of Anesthesia Complications History of PONV No Hx of PONV and No Hx of Motion Sickness Social History Smoking Status: Former smoker tobacco type: cigarettes Smoking cigarettes per day: CUTTING BACK 4-5 CIGS A DAY-X SEVERAL YRS Do You Dip or Chew Tobacco: No Hx Alcohol Use: Yes Alcohol type: wine alcohol intake frequency: holidays/special occasions only Hx Substance Use: No substance use type: does not use Physical Exam Vital Signs Last Vital Signs Temp 36.9 C 11/24/22 10:44 Pulse 58 L 11/24/22 10:44 Resp 18 11/24/22 10:44 BP 132/76 11/24/22 10:44 Pulse Ox 95 11/24/22 10:44 O2 Del Method Room Air 11/24/22 10:44 O2 Flow Rate 2 11/23/22 16:40 Constitutional + morbidly obese ENMT Mouth: no dentition abnormality Thyromental Distance: > or= 3.5 Finger Breadths Mallampati Class: II Neck normal visual inspection Respiratory normal respiratory effort Auscultation: lungs clear to auscultation bilaterally Cardiovascular Rate/Rhythm: regular rate and regular rhythm Psychiatric Orientation: alert Testing Laboratory Results 11/24/22 06:19 11/24/22 06:19 Urine Color [place] 11/21/22 12:50 Urine Appearance Cloudy (Clear) A 11/21/22 12:50 Urine pH 5.5 (4.5-7.5) 11/21/22 12:50 Ur Specific [place] 1.030 (1.000-1.030) 11/21/22 12:50 Urine Protein 1+ (Negative) H 11/21/22 12:50 Urine Glucose (UA) Negative (Negative) 11/21/22 12:50 Urine Ketones Negative (Negative) 11/21/22 12:50 Urine Nitrite Positive (Negative) A 11/21/22 12:50 Ur Leukocyte Esterase 1+ (Negative) H 11/21/22 12:50 Urine WBC (Auto) 1-5 /hpf (0-5) 11/21/22 12:50 Urine RBC (Auto) 0-4 /hpf (0-4) 11/21/22 12:50 U Hyaline Cast (Auto) 0 /lpf (0-5) 11/21/22 12:50 U Epithel Cells (Auto) >30 /lpf (0-5) H 11/21/22 12:50 Urine Bacteria (Auto) 1+ (Negative) H 11/21/22 12:50 Urine Test Negative (Negative) 11/21/22 12:50 11/21/22 16:28 Aerobic Blood Culture - Preliminary Blood No growth in Aerobic bottle after 48 hours. Anaerobic Blood Culture - Preliminary No growth in Anaerobic bottle after 48 hours. 11/21/22 16:29 Aerobic Blood Culture - Preliminary Blood No growth in Aerobic bottle after 48 hours. Anaerobic Blood Culture - Preliminary No growth in Anaerobic bottle after 48 hours. 11/21/22 12:50 Urine Culture - Final Urine,Clean Catch More than three types of organisms present, all moderate counts mixed probable skin chris. No further identifications or sensitivities to follow. 11/21/22 12:50 Urine Test Negative
[2022-11-24] MEDS ORDERED: fentaNYL citrate PF 100 MCG/2 ML VIAL ONE ×2 (11:22→12:05)
[2022-11-24] MEDS ORDERED: MIDAZOLAM HCL 1 MG/ML 2ML VIAL ONE (11:22)
[2022-11-24] MEDS ORDERED: BUPIVACAINE 0.5 % 5 MG/1 ML MPF 30ML VIAL ONE (11:25)
[2022-11-24] MEDS ORDERED: ALBUTEROL HFA 8 GM INHALER INH ONE (11:44)
[2022-11-24] MEDS ORDERED: METOCLOPRAMIDE HCL INJ 5 MG/ML 2 ML VIAL ONE (12:01)
[2022-11-24] MEDS ORDERED: DEXAMETHASONE SOD INJ 4 MG/ML VIAL ONE (12:01)
[2022-11-24] MEDS ORDERED: ONDANSETRON INJ 2 MG/ML 2 ML VIAL ONE (12:01)
--- NOTE | 2022-11-24 12:24 | Post Operative Brief Note ---
PG Immediate Post Op with CF Date of Surgery November 24, 2022 Pre & Post Diagnosis Operation Date: 11/24/22 11:30 Pre-Op Diagnosis: Choledocholithiasis. Post-Op Diagnosis: Choledocholithiasis. Cholelithiasis I identified the patient and participated in the time-out.: Yes Procedure Operation Date: 11/24/22 11:30 Actual Procedures p Laparoscopic Cholecystectomy - Yovani Thornton MD, FACS Surgeon Yovani Thornton MD, FACS Merchandise Shopper none Estimated Blood Loss 5 Findings Consistent with Post-Op Diagnosis Very large gallbladder with gallstones Specimens Specimen Description: A. Gallbladder and contents.
[2022-11-24] MEDS ORDERED: SUGAMMADEX SODIUM 200 MG/2 ML VIAL IV ONE (12:30)
--- NOTE | 2022-11-24 12:31 | Operative Report ---
PG Post Operative Report Pre & Post Diagnosis Operation Date: 11/24/22 11:30 Pre-Op Diagnosis: Choledocholithiasis. Post-Op Diagnosis: Choledocholithiasis. Cholelithiasis I identified the patient and participated in the time-out.: Yes Procedure Operation Date: 11/24/22 11:30 Actual Procedures p Laparoscopic Cholecystectomy - Yovani Thornton MD, FACS Surgeon Yovani Thornton MD, FACS Marble Polisher tracie avendaño Estimated Blood Loss 5 Findings Consistent with Post-Op Diagnosis Specimens Gallbladder Description of Procedure Patient brought in the operating room placed operative table supine position Pneumatic stockings were placed her abdomen is prepped and draped in usual fashion orogastric tube was placed Half percent plain Marcaine was used to anesthetize all incisions Incision was made above the umbilicus carried dissection down to the fascia placing a varies needle producing pneumoperitoneum, 11 mm port placed at this level Under visualization three 5 mm ports were placed one cephalad and 2 laterally Gallbladder was grasped and retracted it was very long somewhat distended dissection carried out the sanaz hepatis She did have some scar tissue at this level Cystic duct and cystic artery were identified clipped and transected Gallbladder dissected away from the liver bed in usual fashion He was placed into an Endobag-after appropriate hemostasis and irrigation the Endobag was removed through the umbilical site The umbilical fascia closed using 0 PDS suture Skin reapproximated using subcuticular 4-0 Monocryl with Dermabond Patient transferred recovery room in stable condition My assistant superintendent help with prepping draping removal of the gallbladder and closure of the wounds I attest to the content of the Intraoperative Record and any orders documented therein. Any exceptions are noted below.
[2022-11-24] MEDS ORDERED: HYDROmorphone INJ 0.5 MG/0.5 ML SYR IV PRN (13:43)
[2022-11-24] MEDS ORDERED: oxyCODONE HCL IR 5 MG TAB (IMMEDIATE RELEASE) PO PRN (13:43)
--- NOTE | 2022-11-24 13:53 | Hospitalist Progress Note ---
Date of Service November 24, 2022 Assessment & Plan (1) Acute cholecystitis: (2) Urinary tract infection: (3) Choledocholithiasis: Plan: Patient is a 32-year-old female who presented to the ED with abdominal pain, nausea, vomiting. On presentation to the ED, vitals stable. Afebrile. Saturating well on room air Labs reviewed; leukocytosis and thrombocytosis present on admission. Leukocytosis resolved. Microcytic anemia present; iron studies suggestive of iron deficiency anemia; ferritin of 23.5. AST/AL T/ALP elevated. Total bilirubin down trended on today's lab Urinalysis suggestive of infection CT abdomen and pelvis reviewed; distended gallbladder with cholelithiasis, intrahepatic and extrahepatic biliary duct dilation. Urine culture no growth Blood culture no growth so far Status post ERCP on 11/23: Found to have impacted CBD stone s/p removal and biliary sphincterectomy. Prophylactic pancreatic stent and biliary stent placed. GI recommends: - Continue antibiotics coverage for 2 weeks total - Repeat ERCP in 6-10 week's time for stent removal - Avoid NSAIDs x 1 week - Trend LFTs Patient to undergo laparoscopic cholecystectomy by surgery today. (4) Anxiety and depression: Plan: Continue on venlafaxine (5) Morbid obesity: Plan DVT prophylaxis Lovenox currently on hold for the procedures. Full code Please note the above document was generated using voice recognition software. It may contain grammatical, syntax or spelling errors. Any formal questions or concerns about the content, text or information contained within the body of this dictation should be directly addressed to the provider for clarification Admission and Anticipated Discharge Date Admission Date: November 21, 2022 Subjective Patient seen and examined at bedside. She is comfortable; not in distress. She denies fever, chills. She reports no urinary symptoms. Review of Systems Review of Systems: All systems reviewed & are unremarkable except as noted in Subjective Physical Exam Physical Exam: Constitutional: Awake, alert oriented x3. Morbidly obese. Respiratory: normal respiratory effort, lungs clear to auscultation, no wheeze, rales, rhonchi. Normal insp/exp effort, no accessory muscle use Cardiovascular: RRR, no murmur, no edema Vessels: no JVD or carotid bruit Chest: normal inspection of chest Abdomen: Soft, nontender. Musculoskeletal: no cyanosis or clubbing, extremities motor strength 5/5 Skin: no rashes, warm and dry normal turgor Neurologic: PERRL, EOMI, accommodation nl, no face palsy, no dysarthria CN's II- XI intact bilaterally and moves all extremities Psychiatric: A+Ox3, euthymic affect Results & Data Results & Data Vital Signs (Past 12 Hours) Vital Signs Temp Pulse Pulse Resp BP Pulse Ox O2 Del Method 11/24/22 13:40 36.7 C 65 14 103/68 95 Room Air 11/24/22 13:15 74 16 128/72 97 Room Air 11/24/22 13:05 74 16 137/61 96 Nasal Cannula 11/24/22 12:55 67 15 133/70 100 Nasal Cannula 11/24/22 12:47 36.4 C L 67 18 133/72 100 Nasal Cannula 11/24/22 10:44 36.9 C 58 L 18 132/76 95 Room Air 11/24/22 07:54 36.8 C 62 16 126/75 95 Room Air 11/24/22 03:33 36.8 C 65 16 118/78 96 Room Air O2 Flow Rate 11/24/22 13:40 11/24/22 13:15 11/24/22 13:05 3 11/24/22 12:55 3 11/24/22 12:47 3 11/24/22 10:44 11/24/22 07:54 11/24/22 03:33 Laboratory Results Laboratory Results WBC 14.17 K/ul (4.8-10.8) H 11/24/22 06:19 RBC 4.30 M/uL (4.20-5.40) 11/24/22 06:19 Hgb 10.2 g/dl (12.0-16.0) L 11/24/22 06:19 Hct 32.9 % (37.0-47.0) L 11/24/22 06:19 MCV 76.5 fL (80.0-100.0) L 11/24/22 06:19 MCH 23.7 pg (25.0-34.0) L 11/24/22 06:19 MCHC 31.0 g/dL (32.0-36.0) L 11/24/22 06:19 RDW Std Deviation 43.8 fL (36.4-46.3) 11/24/22 06:19 RDW Coeff of [place] 16.7 % (11.5-14.5) H 11/24/22 06:19 Plt Count 462 K/uL (130-400) H 11/24/22 06:19 MPV 10.0 fL (9.4-12.4) 11/24/22 06:19 Immature Gran % (Auto) 0.8 % 11/24/22 06:19 Neut % (Auto) 73.9 % 11/24/22 06:19 Lymph % (Auto) 19.3 % 11/24/22 06:19 Story % (Auto) 5.5 % 11/24/22 06:19 Eos % (Auto) 0.1 % 11/24/22 06:19 Baso % (Auto) 0.4 % 11/24/22 06:19 Neut # (Auto) 10.46 K/uL (1.40-6.50) H 11/24/22 06:19 Lymph # (Auto) 2.74 K/uL (1.2-3.4) 11/24/22 06:19 Story # (Auto) 0.78 K/uL (0.11-0.59) H 11/24/22 06:19 Eos # (Auto) 0.02 K/uL (0-0.50) 11/24/22 06:19 Baso # (Auto) 0.06 K/uL (0-0.2) 11/24/22 06:19 Immature Gran # (Auto) 0.11 K/uL (0.01-0.20) 11/24/22 06:19 Sodium 139 mmol/L (136-145) 11/24/22 06:19 Potassium 3.7 mmol/L (3.5-5.1) 11/24/22 06:19 Chloride 104 mmol/L (98-107) 11/24/22 06:19 Carbon Dioxide 30 mmol/L (21-32) 11/24/22 06:19 Anion Gap 5 (3-11) 11/24/22 06:19 BUN 5 mg/dl (6-23) L 11/24/22 06:19 Creatinine 0.46 mg/dl (0.6-1.2) L 11/24/22 06:19 Est Cr Clr Drug Dosing 222.7 ml/min 11/24/22 06:19 Est GFR ( Amer) > 150.0 ml/min 11/24/22 06:19 Est GFR (Non-Af Amer) 129.8 ml/min 11/24/22 06:19 BUN/Creatinine Ratio 10.9 (10-20) 11/24/22 06:19 Glucose 99 mg/dl (70-99(Fasting)) 11/24/22 06:19 Calcium 8.2 mg/dl (8.6-10.3) L 11/24/22 06:19 Iron 63 mcg/dl (35-150) 11/23/22 06:01 Unsaturated IBC 273 mcg/dl (155-355) 11/23/22 06:01 Ferritin 23.5 ng/ml (8-388) 11/23/22 06:01 Total Bilirubin 1.7 mg/dl (0.2-1.0) H D 11/24/22 06:19 AST 40 U/L (13-39) H 11/24/22 06:19 ALT 155 U/L (7-52) H 11/24/22 06:19 Alkaline Phosphatase 238 U/L (34-104) H 11/24/22 06:19 Total Protein 6.2 gm/dl (6.0-8.3) 11/24/22 06:19 Albumin 3.4 gm/dl (3.4-5.0) 11/24/22 06:19 Globulin 2.8 gm/dl (2.5-4.0) 11/24/22 06:19 Albumin/Globulin Ratio 1.2 (0.9-2) 11/24/22 06:19 Lipase 4 U/L (11-82) L 11/21/22 12:50 Urine Color [place] 11/21/22 12:50 Urine Appearance Cloudy (Clear) A 11/21/22 12:50 Urine pH 5.5 (4.5-7.5) 11/21/22 12:50 Ur Specific [place] 1.030 (1.000-1.030) 11/21/22 12:50 Urine Protein 1+ (Negative) H 11/21/22 12:50 Urine Glucose (UA) Negative (Negative) 11/21/22 12:50 Urine Ketones Negative (Negative) 11/21/22 12:50 Urine Blood Negative (Negative) 11/21/22 12:50 Urine Nitrite Positive (Negative) A 11/21/22 12:50 Urine Bilirubin 3+ (Negative) H 11/21/22 12:50 Urine Urobilinogen Negative (Negative) 11/21/22 12:50 Ur Leukocyte Esterase 1+ (Negative) H 11/21/22 12:50 Urine WBC (Auto) 1-5 /hpf (0-5) 11/21/22 12:50 Urine RBC (Auto) 0-4 /hpf (0-4) 11/21/22 12:50 U Hyaline Cast (Auto) 0 /lpf (0-5) 11/21/22 12:50 U Epithel Cells (Auto) >30 /lpf (0-5) H 11/21/22 12:50 Urine Bacteria (Auto) 1+ (Negative) H 11/21/22 12:50 Urine Mucus Present (None Prsent) A 11/21/22 12:50 Urine Yeast Not Reportable 11/21/22 12:50 Urine Test Negative (Negative) 11/21/22 12:50 SARS-CoV-2, RNA, NAAT NEGATIVE (NEGATIVE) 11/21/22 14:25 Impressions Chest X-Ray 11/21/22 12:51 XR chest 1V portable HISTORY: 32 years-old Female sob, vomiting acute shortness of breath with nausea and vomiting COMPARISON: None TECHNIQUE: AP view of the chest FINDINGS: Cardiac silhouette is enlarged. Moderate hemidiaphragm elevation. Subsegmental right basilar atelectasis. No pneumothorax, pleural effusion or overt pulmonary edema. Bones appear grossly intact. IMPRESSION: Mild right basilar atelectasis. ACT 112: Negative or not required by law. The above report was generated using voice recognition software. It may contain grammatical, syntax or spelling errors. Electronically signed by: Lemuel Ortega M.D. 11/21/2022 1:10 PM Abdomen/Pelvis CT 11/21/22 13:[address] WITH IV CONTRAST CT DOSE: 1408.89 mGy.cm HISTORY: Acute nausea with vomiting and elevated LFTs vomiting, back pain, elevated lfts TECHNIQUE: Multiaxial CT images of the abdomen and pelvis were performed following the IV administration of 95 cc of Optiray, A dose lowering technique was utilized adhering to the principles of ALARA. COMPARISON STUDY: None. FINDINGS: Clear lung bases. No pneumatosis or pneumoperitoneum. Unremarkable spleen, pancreas and adrenal glands. Distended gallbladder with layering g allstones in the gallbladder lumen and neck. Common bile duct dilation measures up to 1.2 cm. No definite choledocholithiasis identified. Moderate intrahepatic biliary ductal dilation. Liver is mildly enlarged. Patency of the portal vein. Unremarkable kidneys. There are no bladder wall thickening which is partially decompressed. IUD of the mid uterus. 3.1 cm right ovarian cyst. Aorta and IVC are unremarkable. No lymphadenopathy. No bowel obstruction or bowel wall thickening. No CT evidence of acute appendicitis. Tiny fat filled umbilical hernia, diastases of 2 cm. No acute fracture. Transitional lumbosacral anatomy. IMPRESSION: 1. Distended gallbladder with cholelithiasis, intrahepatic and extrahepatic biliary duct dilation. No definite choledocholithiasis identified by CT. Correl ation with serum bilirubin recommended. 2. No bowel obstruction or bowel wall thickening. ACT 112: Negative or not required by law. The above report was generated using voice recognition software. It may contain grammatical, syntax or spelling errors. Electronically signed by: Lemuel Ortega M.D. 11/21/2022 2:04 PM Endo Retro Cholangiopancreatogram 11/23/22 13:30 [place] ERCP biliary ductal CLINICAL HISTORY: ERCP. Elevated LFTs. Mild duct dilatation. COMPARISON STUDY: Abdomen and pelvis CT 11/21/2022. FLUOROSCOPY TIME: 56 seconds FLUOROSCOPY IMAGES: 2 Ka,r: 29.4 mGy FINDINGS: The endoscope is seen at the second portion of the duodenum. Contrast was not identified within the common bile duct or main pancreatic duct on this study. IMPRESSION: Fluoroscopic assistance as above. ACT 112: Negative or not required by law. Electronically signed by: Samson Suarez M.D. 11/23/2022 7:36 PM
--- NOTE | 2022-11-24 14:00 | Communication Note ---
Date of Service: November 24, 2022 PATIENT EDUCATION: Your anesthetic today included a medication called Suggamadex. This medication can temporarily decrease the effectiveness of hormonal control such as your Mirena IUD. For the next 7-10 days, you should use a non hormonal method of control if engaging in sexual intercourse such as condoms to prevent an unintended . This medication will not impact the group home function of your IUD, nor your group home fertility. This information was provided to the patient and her partner both verbally and in written form.
--- NOTE | 2022-11-24 14:24 | Anesthesiology Progress Note ---
Date of Service November 24, 2022 Anesthesia Post Procedure Vital Signs Vital Signs: Temp Pulse Pulse Resp BP BP Pulse Ox 11/24/22 14:22 69 16 126/73 94 11/23/22 17:40 62 14 115/82 94 11/24/22 13:40 36.7 C 65 14 103/68 95 11/24/22 13:15 74 16 128/72 97 11/24/22 13:05 74 16 137/61 96 11/24/22 12:55 67 15 133/70 100 11/24/22 12:47 36.4 C L 67 18 133/72 100 11/24/22 10:44 36.9 C 58 L 18 132/76 95 11/24/22 07:54 36.8 C 62 16 126/75 95 11/24/22 03:33 36.8 C 65 16 118/78 96 11/23/22 22:34 36.8 C 61 18 115/71 97 11/23/22 19:30 37 C 50 L 16 111/70 97 11/23/22 18:34 37.3 C 57 L 16 136/84 98 11/23/22 16:40 56 L 14 118/76 96 11/23/22 16:10 36.8 C 56 L 14 125/80 96 11/23/22 15:40 36.7 C 55 L 14 120/82 97 11/23/22 15:30 67 16 136/71 95 11/23/22 15:20 36.7 C 53 L 14 121/82 95 11/23/22 15:10 62 14 125/69 98 11/23/22 15:00 71 16 111/86 97 11/23/22 14:57 36.4 C L 65 15 112/77 99 O2 Del Method O2 Flow Rate 11/24/22 14:22 Room Air 11/23/22 17:40 Room Air 11/24/22 13:40 Room Air 11/24/22 13:15 Room Air 11/24/22 13:05 Nasal Cannula 3 11/24/22 12:55 Nasal Cannula 3 11/24/22 12:47 Nasal Cannula 3 11/24/22 10:44 Room Air 11/24/22 07:54 Room Air 11/24/22 03:33 Room Air 11/23/22 22:34 Room Air 11/23/22 19:30 Room Air 11/23/22 18:34 Room Air 11/23/22 16:40 Nasal Cannula 2 11/23/22 16:10 Nasal Cannula 1 11/23/22 15:40 Nasal Cannula 2 11/23/22 15:30 Nasal Cannula 2 11/23/22 15:20 Nasal Cannula 2 11/23/22 15:10 Nasal Cannula 2 11/23/22 15:00 Nasal Cannula 2 11/23/22 14:57 Nasal Cannula 3 Pain Intensity Back: Pain Intensity: 4 Abdomen: Pain Intensity: 3 Transfer of Care Handoff Completed per policy Notes Mental Status: alert / awake / arousable Patient Amnestic to Procedure: Yes Nausea / Vomiting: adequately controlled Pain: adequately controlled Airway Patency, RR, SpO2: stable & adequate BP & HR: stable & adequate Hydration State: stable & adequate Anesthetic Complications: no major complications apparent
[2022-11-24] MEDS: VENLAFAXINE HCL XR 150 MG CAPXR PO SCH (16:43)
[2022-11-24] MEDS: ENOXAPARIN INJ 40 MG/0.4 ML SYR SQ SCH (16:43)
[2022-11-25] MEDS: PIPERACILLIN/TAZOBACTAM 4.5 GM in DEXTROSE 5% 100 ML IV SCH ×2 (02:05→09:39)
[2022-11-25 07:57] LABS: Basophils # (auto) 0.04 K/uL (0-0.2); Basophils % (auto) 0.3 %; Eosinophils # (auto) 0.04 K/uL (0-0.50); Eosinophils % (auto) 0.3 %; Hematocrit (blood only) 30.8 % (37.0-47.0); Hemoglobin 9.4 g/dl (12.0-16.0); Immature Granulocytes # (auto) 0.11 K/uL (0.01-0.20); Immature Granulocytes % (auto) 0.9 %; Lymphocytes # (auto) 3.72 K/uL (1.2-3.4); Mean Corpuscular Hgb Conc 30.5 g/dL (32.0-36.0); Mean Corpuscular Volume 78.8 fL (80.0-100.0); Monocytes # (auto) 0.84 K/uL (0.11-0.59); Neutrophils # (auto) 7.25 K/uL (1.40-6.50); Neutrophils % (auto) 60.5 %; Platelet Count 401 K/uL (130-400); RDW Coefficient of Variation 17.2 % (11.5-14.5); RDW Standard Deviation 46.3 fL (36.4-46.3); Red Blood Count 3.91 M/uL (4.20-5.40)
[2022-11-25 08:22] LABS: Albumin Globulin Ratio 1.3 (0.9-2); Albumin Level 3.4 gm/dl (3.4-5.0); BUN Creatinine Ratio 13.5 (10-20); Bilirubin,Total 1.2 mg/dl (0.2-1.0); Calcium 7.9 mg/dl (8.6-10.3); Est GFR (African American) 144.5 ml/min; Est GFR (Non-African American) 124.7 ml/min; Globulin 2.7 gm/dl (2.5-4.0); Potassium 3.4 mmol/L (3.5-5.1); Total Protein 6.1 gm/dl (6.0-8.3)
[2022-11-25] MEDS ORDERED: POTASSIUM CHLORIDE CRTAB 20 MEQ TABCR PO ONE (09:45)
--- NOTE | 2022-11-25 12:36 | Hospitalist Progress Note ---
Date of Service November 25, 2022 Assessment & Plan (1) Acute cholecystitis: (2) Urinary tract infection: (3) Choledocholithiasis: Plan: Patient is a 32-year-old female who presented to the ED with abdominal pain, nausea, vomiting. Choledocholithiasis, cholelithiasis --CT Chest:Distended gallbladder with cholelithiasis, intrahepatic and extrahepatic biliary duct dilation. No definite choledocholithiasis identified by CT. Correlation with serum bilirubin recommended. No bowel obstruction or bowel wall thickening. --Endoscopic USD:There was no sign of significant pathology in the ampulla. One stone was visualized endosonographically in the common bile duct. Multiple stones were visualized endosonographically in the gallbladder. Hyperechoic material consistent with sludge was visualized endosonographically in the gallbladder. There was abnormal echogenicity in the visualized portion of the liver. This was hyperechoic. Tissue has not been obtained. However, the endosonographic appearance is suggestive of fatty infiltration. There was no sign of significant pathology in the entire pancreas. Endosonographic images of the left adrenal gland were unremarkable. No specimens collected. S/P laparoscopic cholecystectomy by Dr. Thornton on 11/24/2022 S/P ERCP with biliary sphincterotomy / gallstone extraction/ Biliary and pancretic stent placement. by on 11/23/22 Microcytic anemia Iron studies suggestive of iron deficiency anemia; ferritin of 23.5. Total bilirubin, LFTs trended down Continue antibiotics Appreciate surgery, GI input Needs follow-up with ERCP for stent removal in 6 to 10 weeks Avoid NSAIDs for 1 week Avoid hepatotoxic agents as able Abnormal urinalysis Urine culture: Mixed probable skin chris Mood disorder Continue home medications DVT Px: Lovenox SQ CODE STATUS Full code (4) Anxiety and depression: Plan: Continue on venlafaxine (5) Morbid obesity: Plan DVT prophylaxis Lovenox currently on hold for the procedures. Full code Please note the above document was generated using voice recognition software. It may contain grammatical, syntax or spelling errors. Any formal questions or concerns about the content, text or information contained within the body of this dictation should be directly addressed to the provider for clarification Admission and Anticipated Discharge Date Admission Date: November 21, 2022 Subjective Patient is seen and examined at bedside States feeling well today Denies any abdominal pain, nausea, vomiting, chest pain, dyspnea Tolerated diet Plan to discharge home today Review of Systems Review of Systems: All systems reviewed & are unremarkable except as noted in Subjective Physical Exam Physical Exam: Physical Exam: Vitals signs as noted above General Appearance:Morbidly Obese, no apparent distress Head: normocephalic, Atraumatic Eyes: normal inspection, EOMI Neck: supple, Trachea midline Respiratory/Chest: Normal breath sounds, CTA, No accessory muscle use Cardiovascular: S1, S2, No murmur Abdomen/GI:Soft, Non tender, +Surgical scars, Bowel sounds present Extremities/Musculoskeletal:normal inspection, no edema Neurologic/Psych:AAOX3, grossly no focal neurological deficits Skin: normal color, warm Results & Data Results & Data Vital Signs (Past 12 Hours) Vital Signs Temp Pulse Pulse Resp BP BP Pulse Ox 11/25/22 08:57 36.6 C 74 80 18 109/63 131/81 96 11/25/22 07:20 36.6 C 80 18 131/81 96 11/25/22 02:00 36.6 C 60 18 109/63 97 O2 Del Method 11/25/22 08:57 11/25/22 07:20 Room Air 11/25/22 02:00 Room Air Laboratory Results Short CBC 11/25/22 Range/Units 07:25 WBC 12.00 H (4.8-10.8) K/ul Hgb 9.4 L (12.0-16.0) g/dl Hct 30.8 L (37.0-47.0) % Plt Count 401 H (130-400) K/uL BMP 11/25/22 07:25 Sodium 140 Potassium 3.4 L Chloride 105 Carbon Dioxide 30 BUN 7 Creatinine 0.52 L Glucose 91 Calcium 7.9 L Liver Function 11/25/22 Range/Units 07:25 Total Bilirubin 1.2 H (0.2-1.0) mg/dl AST 27 (13-39) U/L ALT 114 H (7-52) U/L Alkaline Phosphatase 178 H (34-104) U/L Albumin 3.4 (3.4-5.0) gm/dl
--- NOTE | 2022-11-25 15:37 | Discharge Summary ---
Date of Service November 25, 2022 Admission HPI Per Admitting Provider This is a 32yo F with PMH of anxiety and depression who presented to Urgent Care from work earlier today due to worsening flank pain, nausea and vomiting over the past few days. Has had poor appetite, nausea, vomiting, flank pain that is worse with eating and movement. Associated symptoms include lightheadedness and chills. Having diarrhea every time she eats. No urinary symptoms. Denies any known fever, CP, SOB or constipation. Was seen at urgent care and then directed to ED for further evaluation. Denies any known history of gall stones. History of appendectomy in the past. Had an IUD inserted 1 month ago. Only other home medication is Venlafaxine. VSS, WBC 11.56, AST 127, ALT 287, alk phos 266, UA abnormal, CT abd/pelvis with distended gallbladder with cholelithiasis, intrahepatic and extrahepatic biliary duct dilation. No definite choledocholithiasis identified by CT. Correlation with serum bilirubin recommended. ED discussed with Dr. Rodriguez of GI service who is coordinating for ERCP on Wednesday with Dr. Magana. Continuing Zosyn, clear liquids. Admission Exam Per Admitting Provider Constitutional: Awake, alert oriented x3. Morbidly obese. Respiratory: normal respiratory effort, lungs clear to auscultation, no wheeze, rales, rhonchi. Normal insp/exp effort, no accessory muscle use Cardiovascular: RRR, no murmur, no edema Vessels: no JVD or carotid bruit Chest: normal inspection of chest Abdomen: Soft, nontender. Left costovertebral angle tender. Musculoskeletal: no cyanosis or clubbing, extremities motor strength 5/5 Skin: no rashes, warm and dry normal turgor Neurologic: PERRL, EOMI, accommodation nl, no face palsy, no dysarthria CN's II- XI intact bilaterally and moves all extremities Psychiatric: A+Ox3, euthymic affect Principal Diagnosis Choledocholithiasis S/P Laparoscopic cholecystectomy, biliary sphincterotomy, and gallstone extraction, biliary and pancreatic stent placement. Discharge Data Allergies Allergy/AdvReac Type Severity Reaction Status Date / Time onion Allergy Hives Verified 06/30/22 06:31 Consultations 11/21/22 15:01 ED Decision to Admit Stat 11/21/22 15:25 Consult General Surgery Routine 11/21/22 16:55 Consult Gastroenterology Routine Procedures Performed Operation Date: 11/24/22 11:30 Actual Procedures p Laparoscopic Cholecystectomy - Yovani Thornton MD, FACS Ordered Studies 11/21/22 13:23 CT abd pelvis IV con only Stat 11/23/22 11:36 US upper EUS PACS images Routine 11/23/22 13:30 FL ERCP biliary ductal Routine Laboratory Results WBC 12.00 K/ul (4.8-10.8) H 11/25/22 07:25 RBC 3.91 M/uL (4.20-5.40) L 11/25/22 07:25 Hgb 9.4 g/dl (12.0-16.0) L 11/25/22 07:25 Hct 30.8 % (37.0-47.0) L 11/25/22 07:25 MCV 78.8 fL (80.0-100.0) L 11/25/22 07:25 MCH 24.0 pg (25.0-34.0) L 11/25/22 07:25 MCHC 30.5 g/dL (32.0-36.0) L 11/25/22 07:25 RDW Std Deviation 46.3 fL (36.4-46.3) 11/25/22 07:25 RDW Coeff of [place] 17.2 % (11.5-14.5) H 11/25/22 07:25 Plt Count 401 K/uL (130-400) H 11/25/22 07:25 MPV 10.0 fL (9.4-12.4) 11/25/22 07:25 Immature Gran % (Auto) 0.9 % 11/25/22 07:25 Neut % (Auto) 60.5 % 11/25/22 07:25 Lymph % (Auto) 31.0 % 11/25/22 07:25 Leslie % (Auto) 7.0 % 11/25/22 07:25 Eos % (Auto) 0.3 % 11/25/22 07:25 Baso % (Auto) 0.3 % 11/25/22 07:25 Neut # (Auto) 7.25 K/uL (1.40-6.50) H 11/25/22 07:25 Lymph # (Auto) 3.72 K/uL (1.2-3.4) H 11/25/22 07:25 Leslie # (Auto) 0.84 K/uL (0.11-0.59) H 11/25/22 07:25 Eos # (Auto) 0.04 K/uL (0-0.50) 11/25/22 07:25 Baso # (Auto) 0.04 K/uL (0-0.2) 11/25/22 07:25 Immature Gran # (Auto) 0.11 K/uL (0.01-0.20) 11/25/22 07:25 Sodium 140 mmol/L (136-145) 11/25/22 07:25 Potassium 3.4 mmol/L (3.5-5.1) L 11/25/22 07:25 Chloride 105 mmol/L (98-107) 11/25/22 07:25 Carbon Dioxide 30 mmol/L (21-32) 11/25/22 07:25 Anion Gap 5 (3-11) 11/25/22 07:25 BUN 7 mg/dl (6-23) 11/25/22 07:25 Creatinine 0.52 mg/dl (0.6-1.2) L 11/25/22 07:25 Est Cr Clr Drug Dosing 197.0 ml/min 11/25/22 07:25 Est GFR ( Amer) 144.5 ml/min 11/25/22 07:25 Est GFR (Non-Af Amer) 124.7 ml/min 11/25/22 07:25 BUN/Creatinine Ratio 13.5 (10-20) 11/25/22 07:25 Glucose 91 mg/dl (70-99(Fasting)) 11/25/22 07:25 Calcium 7.9 mg/dl (8.6-10.3) L 11/25/22 07:25 Iron 63 mcg/dl (35-150) 11/23/22 06:01 Unsaturated IBC 273 mcg/dl (155-355) 11/23/22 06:01 Ferritin 23.5 ng/ml (8-388) 11/23/22 06:01 Total Bilirubin 1.2 mg/dl (0.2-1.0) H 11/25/22 07:25 AST 27 U/L (13-39) 11/25/22 07:25 ALT 114 U/L (7-52) H 11/25/22 07:25 Alkaline Phosphatase 178 U/L (34-104) H 11/25/22 07:25 Total Protein 6.1 gm/dl (6.0-8.3) 11/25/22 07:25 Albumin 3.4 gm/dl (3.4-5.0) 11/25/22 07:25 Globulin 2.7 gm/dl (2.5-4.0) 11/25/22 07:25 Albumin/Globulin Ratio 1.3 (0.9-2) 11/25/22 07:25 Lipase 4 U/L (11-82) L 11/21/22 12:50 Urine Color [place] 11/21/22 12:50 Urine Appearance Cloudy (Clear) A 11/21/22 12:50 Urine pH 5.5 (4.5-7.5) 11/21/22 12:50 Ur Specific [place] 1.030 (1.000-1.030) 11/21/22 12:50 Urine Protein 1+ (Negative) H 11/21/22 12:50 Urine Glucose (UA) Negative (Negative) 11/21/22 12:50 Urine Ketones Negative (Negative) 11/21/22 12:50 Urine Blood Negative (Negative) 11/21/22 12:50 Urine Nitrite Positive (Negative) A 11/21/22 12:50 Urine Bilirubin 3+ (Negative) H 11/21/22 12:50 Urine Urobilinogen Negative (Negative) 11/21/22 12:50 Ur Leukocyte Esterase 1+ (Negative) H 11/21/22 12:50 Urine WBC (Auto) 1-5 /hpf (0-5) 11/21/22 12:50 Urine RBC (Auto) 0-4 /hpf (0-4) 11/21/22 12:50 U Hyaline Cast (Auto) 0 /lpf (0-5) 11/21/22 12:50 U Epithel Cells (Auto) >30 /lpf (0-5) H 11/21/22 12:50 Urine Bacteria (Auto) 1+ (Negative) H 11/21/22 12:50 Urine Mucus Present (None Prsent) A 11/21/22 12:50 Urine Yeast Not Reportable 11/21/22 12:50 Urine Test Negative (Negative) 11/21/22 12:50 SARS-CoV-2, RNA, NAAT NEGATIVE (NEGATIVE) 11/21/22 14:25 Impressions Chest X-Ray 11/21/22 12:51 XR chest 1V portable HISTORY: 32 years-old Female sob, vomiting acute shortness of breath with nausea and vomiting COMPARISON: None TECHNIQUE: AP view of the chest FINDINGS: Cardiac silhouette is enlarged. Moderate hemidiaphragm elevation. Subsegmental right basilar atelectasis. No pneumothorax, pleural effusion or overt pulmonary edema. Bones appear grossly intact. IMPRESSION: Mild right basilar atelectasis. ACT 112: Negative or not required by law. The above report was generated using voice recognition software. It may contain grammatical, syntax or spelling errors. Electronically signed by: Lemuel Ortega M.D. 11/21/2022 1:10 PM Abdomen/Pelvis CT 11/21/22 13:[address] WITH IV CONTRAST CT DOSE: 1408.89 mGy.cm HISTORY: Acute nausea with vomiting and elevated LFTs vomiting, back pain, elevated lfts TECHNIQUE: Multiaxial CT images of the abdomen and pelvis were performed following the IV administration of 95 cc of Optiray, A dose lowering technique was utilized adhering to the principles of ALARA. COMPARISON STUDY: None. FINDINGS: Clear lung bases. No pneumatosis or pneumoperitoneum. Unremarkable spleen, pancreas and adrenal glands. Distended gallbladder with layering gallstones in the gallbladder lumen and neck. Common bile duct dilation measures up to 1.2 cm. No definite choledocholithiasis identified. Moderate intrahepatic biliary ductal dilation. Liver is mildly enlarged. Patency of the portal vein. Unremarkable kidneys. There are no bladder wall thickening which is partially decompressed. IUD of the mid uterus. 3.1 cm right ovarian cyst. Aorta and IVC are unremarkable. No lymphadenopathy. No bowel obstruction or bowel wall thickening. No CT evidence of acute appendicitis. Tiny fat filled umbilical hernia, diastases of 2 cm. No acute fracture. Transitional lumbosacral anatomy. IMPRESSION: 1. Distended gallbladder with cholelithiasis, intrahepatic and extrahepatic biliary duct dilation. No definite choledocholithiasis identified by CT. Correlation with serum bilirubin recommended. 2. No bowel obstruction or bowel wall thickening. ACT 112: Negative or not required by law. The above report was generated using voice recognition software. It may contain grammatical, syntax or spelling errors. Electronically signed by: Lemuel Ortega M.D. 11/21/2022 2:04 PM Endo Retro Cholangiopancreatogram 11/23/22 13:30 [place] ERCP biliary ductal CLINICAL HISTORY: ERCP. Elevated LFTs. Mild duct dilatation. COMPARISON STUDY: Abdomen and pelvis CT 11/21/2022. FLUOROSCOPY TIME: 56 seconds FLUOROSCOPY IMAGES: 2 Ka,r: 29.4 mGy FINDINGS: The endoscope is seen at the second portion of the duodenum. Contrast was not identified within the common bile duct or main pancreatic duct on this study. IMPRESSION: Fluoroscopic assistance as above. ACT 112: Negative or not required by law. Electronically signed by: Samson Suarez M.D. 11/23/2022 7:36 PM Hospital Course (1) Acute cholecystitis: (2) Urinary tract infection: (3) Choledocholithiasis: Patient is a 32-year-old female who presented to the ED with abdominal pain, nausea, vomiting. Choledocholithiasis, cholelithiasis --CT Chest:Distended gallbladder with cholelithiasis, intrahepatic and extrahepatic biliary duct dilation. No definite choledocholithiasis identified by CT. Correlation with serum bilirubin recommended. No bowel obstruction or bowel wall thickening. --Endoscopic USD:There was no sign of significant pathology in the ampulla. One stone was visualized endosonographically in the common bile duct. Multiple stones were visualized endosonographically in the gallbladder. Hyperechoic material consistent with sludge was visualized endosonograp hically in the gallbladder. There was abnormal echogenicity in the visualized portion of the liver. This was hyperechoic. Tissue has not been obtained. However, the endosonographic appearance is suggestive of fatty infiltration. There was no sign of significant pathology in the entire pancreas. Endosonographic images of the left adrenal gland were unremarkable. No specimens collected. S/P laparoscopic cholecystectomy by Dr. Thornton on 11/24/2022 S/P ERCP with biliary sphincterotomy / gallstone extraction/ Biliary and pancretic stent placement. by on 11/23/22 Microcytic anemia Iron studies suggestive of iron deficiency anemia; ferritin of 23.5. Total bilirubin, LFTs trended down Continue antibiotics Appreciate surgery, GI input Needs follow-up with ERCP for stent removal in 6 to 10 weeks Avoid NSAIDs for 1 week Avoid hepatotoxic agents as able Abnormal urinalysis Urine culture: Mixed probable skin chris Mood disorder Continue home medications DVT Px: Lovenox SQ CODE STATUS Full code (4) Anxiety and depression: Continue on venlafaxine (5) Morbid obesity: Plan DVT prophylaxis Lovenox currently on hold for the procedures. Full code Please note the above document was generated using voice recognition software. It may contain grammatical, syntax or spelling errors. Any formal questions or concerns about the content, text or information contained within the body of this dictation should be directly addressed to the provider for clarification Total Time Total Time Spent Total Time Spent (In Minutes): 55 minutes Discharge Plan Discharge Items Patient Disposition: Home - Self-Care Reason For Visit: CHOLEDOCHOLITHIASIS Discharge Diagnosis: laparoscopic cholecystectomy Activity: Per Instructions section Activity Comment: light activity for 3-4 weeks Lifting: No more than 10 pounds Bathing Comment: may shower; no soaking in tubs/pools x 2 weeks Sexual Activity: When tolerated Driving/Machine Use: no driving while taking narcotics for pain Non-emergency contact: Primary Care Provider and Surgeon Call non-emergency contact if: you have any medication questions, your pain is worsening, your pain is concerning for you, you have a fever, your temperature is above 101.5, your wound has increased redness, your wound has increased drainage and your wound pain has increased Follow-up/Referrals: Yovani Thornton MD, FACS [Physician] - Livier Dueñas MD [Primary Care Provider] - (Date & Time 11/30/2022 1:00 PM Provider Martha Jones MD Department Family Medicine [facility] ) Diet: Regular Addtl Attending Provider Instructions: SPECIAL CARE INSTRUCTIONS: * Cover incisions and change daily for comfort/drainage. May leave uncovered with Dermabond * Expect some swelling and bruising. Call your doctor if: * Temperature above 101 degrees * Pain not relieved by pain medicine ordered * There is increased drainage or redness from any incision * You have any unanswered questions or concerns [phone]. FOLLOW UP VISIT: If not already scheduled, please call the office for a follow-up visit. For 2 weeksno sutures to remove OFFICE PHONE NUMBER: Dr. Thornton Office Pending Studies at Discharge: Yes Studies:: surgical pathology Stand-Alone Forms: My [facility], Smoking Cessation Medications and DC Order Prescriptions: New amoxicillin-pot clavulanate 875-125 mg tablet 1 tab PO BID Qty: 14 0RF oxycodone 5 mg tablet 5 - 10 mg PO Q6H PRN (Reason: pain) Qty: 30 0RF Rx Instructions: May take 2 tablets every 6hrs but not more than 6 tablets/day I saw the patient today and they had surgery They are going to come into the office within 7 to 14 days Continued ibuprofen 600 mg Tablet 600 mg PO Q6 PRN (Reason: pain) Qty: 40 1RF Mirena 21 mcg/24 hours (8 yrs) 52 mg Intrauterine Device 21 mcg INTRAUTERINE DIRECTED Rx Instructions: Had placed about a month ago venlafaxine 150 mg capsule,extended release 24hr 150 mg PO DAILY Discharge Orders: Discharge Order (Routine); Ordered 11/25/22 Ordered By: Frank Batse Admission Data Admit Date/Time: 11/21/22 15:15 Attending Provider: Frank Bates Admit Provider: Jason Velazquez Primary Care Provider: Livier Dueñas Other Providers: Jason Velazquez ; Yovani Thornton ; Antione Rodriguez Other Interventions: Discharge Summary Assessment (RN) Last Done: 11/25/22 08:57
== END 2022-11-25 13:33 | disposition home or self-care (01) | DRG 418 ==
LOC: ED 12:27 → 3N 15:15 → SUATTDRO 15:15 → 3N 16:26